=== PATIENT | female | born 1980 | race Caucasian/White ===

== ENCOUNTER → 2018-06-06 09:44 | Outpatient (CLI) | payer MEDICAID, SELFPAY ==
[2017-03-09 18:19] VITALS: BMI 39.8
--- NOTE | 2018-06-06 09:46 | RAD_ITS ---
HISTORY: CHRONIC PAIN COMPARISON: None FINDINGS: XR Shoulder Min 3 views No fracture or acute disease. No bony abnormality seen. The right glenohumeral relationship appears normal. No significant arthritis. No soft tissue calcifications. RAD/Shoulder min 2 Views IMPRESSION: Negative right shoulder. No suspicious findings. at 0002 Reported and signed by: Yoshi Glaser MD Electronically Signed: Yoshi Glaser, at 0:00 EST Tel , Service support ,
--- OUTSIDE RECORDS SUMMARY | 2018-07-22 23:38 | XMS RPT_ITS ---
:1980 Author Organization OHIP Care Team Providers Name Role Phone Yoshi Gutierrez Attending Unavailable Alberto Vail Referring Unavailable Yoshi Gutierrez Attending Unavailable Yoshi Gutierrez Referring Unavailable Alberto Vail Primary Care Unavailable PROBLEMS PROBLEMS DATE TYPE CONDITION / CODE ATTENDING STATUS SOURCE 06/06/2018 Unknown M25.511 - Pain in Brenda Yoshi Active [facility] right shoulder / Community M25.511(ICD-10) Hospital Repository 06/06/2018 Unknown M75.41 - Yoshi Gutierrez Impingement Community syndrome of right Hospital shoulder / Repository M75.41(ICD-10) PROCEDURES PROCEDURES No Procedure Records FoundRESULTS RESULTS ORTHOPEDIC VISIT Observed: 06/06/2018 Status: F Source: [place] REPORT 10:35 AM [facility] REPOSITORY [facility]opa[facility] Sports Medicine [address] [place] [address] [address] [place] [address] OFFICE VISIT Date of Service: 06/06/18 MR#: [id number] Acct: [id number] Name: PAM BENITEZ Rep #: [id number] : 1980 Provider: VINCE Gutierrez Age/Sex: 38/F [place] [facility] [place]: Signed Intake Vital Signs06/06/18 Height 5 ft 7 in 06/06/18 Weight: 230 lb 06/06/18 Body Mass Index (BMI) 36.0 Intake Visit Reasons: RIGHT SHOULDER Is patient in pain?: Yes Pain scale (1-10): 9 Allergies No Known Allergies Allergy (Verified 06/06/18 09:48) Medications Benztropine [Cogentin] 0.5 mg PO QHS PRN 09/24/14 [History Confirmed 03/09/17] Fluphenazine HCl [Prolixin] 2.5 mg IM X1 09/24/14 [History Confirmed 06/06/18] Trazodone HCl 300 mg PO QHS 03/29/15 [History Confirmed 03/09/17] naproxen 500 mg tablet 500 mg PO BID 06/06/18 [History Confirmed 06/06/18] PFSH Surgical History tubes tied (Acute) Family History Other Cancer Heart disease Social History Smoking Status: Current every day smoker HPI RIGHT SHOULDER: Details: PAM BENITEZ is a 38 year old F here today for right shoulder pain. Patient notes that she has had shoulder pain for about 3 years with is worsening over the past year. Patient denies any known injury. She states that she has lost 100 pounds recently and thought her pain was from being overweight. Patient complains of an achiness into her lateral shoulder. She has decreased shoulder range of motion due to pain. She notes that she has always had weakness into her right arm. Patient has tried icing, heating and naproxen which isnt helpful. Patient denies any xrays, MRI, injections or physical therapy. ROS Const Reports system reviewed and no additional complaints, except as docu Eyes Reports system reviewed and no additional complaints, except as docu ENT Reports system reviewed and no additional complaints, except as docu Card Reports system reviewed and no additional complaints, except as docu Resp Reports system reviewed and no additional complaints, except as docu GI Reports system reviewed and no additional complaints, except as docu Reports system reviewed and no additional complaints, except as docu Musc Reports joint pain, Reports limited joint movement, Reports muscle weakness Skin/Breast Reports system reviewed and no additional complaints, except as docu Neuro Yes system reviewed and no additional complaints, except as docu Psych Reports system reviewed and no additional complaints, except as docu Endo Reports system reviewed and no additional complaints, except as docu Ortho Exam Right Shoulder Testing: Positive Hawkin's, Neer's and PROM-Forward Elevation 0-180; negative Speed's, TTP Biceps, TTP AC Joint, AROM-Forward Elevation 0-180 (170), AROM-External Rotation at side 0-60 (30), translation or empty can Internal Rotation: Hip SHOULDER: Patient has no evident abnormalities on inspection of the shoulder. She has no localized or generalized swelling noted. There is no evident bruising or ecchymotic changes Patient does have some decreased range of motion in all directions. Passively I am able to get her to full range of motion with forward elevation and abduction. She still lacks a little external rotation passively as well as internal rotation. She does not have any evidence of labral involvement. Office Procedures Kenalog 40 mg/mL suspension for injection (triamcinolone acetonide) 80 mg Intra-Articular ONCE Injections Yes Subacromial Injection Right Office Meds Kenalog Performing Provider: VINCE Sarmiento Administered by: VINCE Sarmiento on 06/06/18 10:13 Dose Route Admin Location Lot Number Expiration DateNDC Inhalation Therapy Aide 80 mg Intra-Articularright shoulder [id number] 05/24/19 [id number] [employer] [place] Assessment AND Plan Problems 1. Rotator cuff impingement syndrome of right shoulder M75.41 Plan Obtained Xrays of patient's right shoulder. Personally reviewed Xrays. There is no obvious fracture, dislocation, or lucency noted. See chart for further details. Patient has evidence of right shoulder impingement showing some decrease in her range of motion and positive impingement signs. She does have normal strength against resistance indicating the rotator cuff is likely intact. Her symptoms started gradually without any acute or known injury. At this time we discussed treatment options which include doing nothing, continued conservative anti-inflammatories and icing, injection, physical therapy, and/or further imaging. At this time I do not feel further imaging is necessarily warranted and patient would like to proceed with an injection and physical therapy in the shoulder. Risks and benefits were explained to patient regarding the injection which she understands. All questions were answered and consent was signed. Right subacromial injection was given under normal sterile fashion without any complications. Patient tolerated great showing marked improvement in her pain with range of motion as well. She is to recheck in 6 weeks after physical therapy. Orders Orders: Medications Discontinued: Kenalog (triamcinolone acetonide) Disco80 mg (2 mL) Intra- Articular ONCE 2 mL 0RFM75.41 ntinued Reason: Office Medication has bee NS n Documented as given Plan Detail Follow Up 6 Weeks Coding Level of Care Code Off vis,new,level 3 Diagnoses Rotator cuff impingement syndrome of right shoulder M75.41 Additional Codes heavy threader.sub ([id number]) 06/06/18 1035 <Electronically signed by Yoshi CLARKE> Date Yoshi CLARKE Cosigner Signature: Date (if applicable) CC: SHOULDER MIN 2 VIEWS Observed: 06/06/2018 Status: F Source: [place] 9:46 AM [facility] REPOSITORY [facility] Imaging Services [address] [place] [address] Shoulder min 2 Views MR#: [id number] Acct: [id number] Name: PAM BENITEZ Rep #: [id number] : 1980 F 38 From: Yoshi Glaser MD PCP: Alberto Vail MD Status: REG CLI Study: Shoulder min 2 Views Date of Exam: 06/06/18 Exam# [id number] Ordering Dr: Yoshi Gutierrez HISTORY: CHRONIC PAIN COMPARISON: None FINDINGS: XR Shoulder Min 3 views No fracture or acute disease. No bony abnormality seen. The right glenohumeral relationship appears normal. No significant arthritis. No soft tissue calcifications. RAD/Shoulder min 2 Views IMPRESSION: Negative right shoulder. No suspicious findings. at 0002 Reported and signed by: Yoshi Glaser MD Electronically Signed: Yoshi Glaser, at 0:00 EST Tel , Service support , CC: VINCE Gutierrez; Alberto Vail MD Alumni Relations Coordinator: Signed PROGRESS Observed: 05/08/2018 Status: COMPLETED Source: [place] 3:33 PM [facility] REPOSITORY HNO ID: [id number] Author: Naman Rucker Service: (none) Author Type: Nurse Practitioner Type: Progress Notes Filed: 05/08/2018 4:09 PM Note Text: Subjective HPI HPI Pam Benitez is a 38 year old female who presents today for CC of sinus pressure, cough. This started 10 days. Has tried otc medications. Symptoms are worsened by nothing. Risk factors everyday smoker, seasonal allergies. Denies possibility of being . Right shoulder pain without injury for past few months. Has limited rom. Improves with ibuprofen, has not used consistently. Does not want xray or w/u today. .Patient presents with: Acute Visit: sinusitis with cough x 10 days PAST MEDICAL HISTORY Diagnosis Date - Depression 2004 [facility] - Personal history UTI As child PAST SURGICAL HISTORY Procedure Laterality Date - LIGATE FALLOPIAN TUBE Tubal ligation ALLERGIES Patient has no known allergies. -This section reviewed with patient, no changes MEDICATIONS benztropine (COGENTIN) 0.5 mg tablet Take 1 tablet by mouth once daily. fluPHENAZine 2.5 mg/mL injection Inject 1 mL intramuscularly every 2 weeks. fluticasone (FLONASE) 50 mcg/actuation nasal spray Use 2 Sprays in each nostril once daily. Rinse mouth after use. traZODone (DESYREL) 100 mg tablet Take 3 tablets by mouth daily at bedtime. -This section reviewed with patient, no changes FAMILY HISTORY Problem Relation Age of Onset - Cancer Maternal Grandfather leukemia - Diabetes Father - Emphysema Maternal Grandmother - Heart Father - Hypertension Father - Lipids Father Social History Substance Use Topics - Smoking status: Current Every Day Smoker Packs/day: 0.50 Types: Cigarettes Start date: 03/14/2013 - Smokeless tobacco: Never Used - Alcohol use No -This section reviewed with patient, no changes Review of Systems Constitutional: Negative for chills and fever. HENT: Positive for congestion and sore throat. Negative for ear pain and nosebleeds. Respiratory: Positive for cough. Negative for shortness of breath and wheezing. Cardiovascular: Positive for chest pain (with cough. not currently. ). Musculoskeletal: Negative for neck pain. Skin: Negative for itching and rash. Objective Blood pressure 98/64, pulse 94, temperature 36.6 ?C (97.9 ?F), temperature source Left Tympanic, resp. rate 16, weight 107.8 kg (237 lb 9.6 oz), SpO2 98 %. Physical Exam Constitutional: She is oriented to person, place, and time and well-developed, well-nourished, and in no distress. Non-toxic appearance. She does not have a sickly appearance. No distress. HENT: Head: Normocephalic and atraumatic. Right Ear: Hearing, tympanic membrane, external ear and ear canal normal. Left Ear: Hearing, tympanic membrane, external ear and ear canal normal. Nose: Right sinus exhibits maxillary sinus tenderness. Left sinus exhibits maxillary sinus tenderness. Mouth/Throat: Uvula is midline, oropharynx is clear and moist and mucous membranes are normal. Eyes: Pupils are equal, round, and reactive to light. Conjunctivae and lids are normal. Right eye exhibits no discharge. Left eye exhibits no discharge. No scleral icterus. Neck: Trachea normal and normal range of motion. Neck supple. Cardiovascular: Normal rate, regular rhythm and normal heart sounds. Pulses: Radial pulses are 2+ on the right side. Pulmonary/Chest: Effort normal and breath sounds normal. Musculoskeletal: Right shoulder: She exhibits decreased range of motion, tenderness and pain. She exhibits no bony tenderness, no swelling, no effusion, no crepitus, no deformity, no laceration, no spasm, normal pulse and normal strength. Arms: Lymphadenopathy: She has no cervical adenopathy. Neurological: She is alert and oriented to person, place, and time. Skin: No rash noted. She is not diaphoretic. ASSESSMENT/PLAN: 1. Sinobronchitis - ICD9: 473.9, 490, ICD10: J32.9, J40 - Will begin treatment with Doxycline - Supportive care with plenty of fluids, rest, and analgesia prn. - Follow up in 3-5 days if symptoms persist or worsen. -If you experience chest pain/shortness of breath go to ER - GUAIFENESIN ER 600 MG TABLET, EXTENDED RELEASE 12 HR - DOXYCYCLINE MONOHYDRATE 100 MG TABLET 2. Acute pain of right shoulder - ICD9: 719.41, ICD10: M25.511 -declined w/u today -given stretches/exercises -Rest, Ice -discussed use of ibuprofen -follow up with primary care if symptoms persist/worsen in 10-14 days Prescription instructions reviewed with patient as applicable. Patient advised if symptoms do not improve or if symptoms worsen sooner, to contact the office for further evaluation by their primary care physician. Potential red flag symptoms discussed with the patient. Reviewed appropriate action plan to take if red flag symptoms occur. Patient agreeable to treatment plan. Naman Rucker APRN.CNP CNOV Observed: 05/08/2018 Status: COMPLETED Source: [place] 3:30 PM [facility] REPOSITORY Office Visit (WSTR) PAM BENITEZ ([id number]) 1980 F Date Time Provider Department 05/08/18 3:30 PM NAMAN RUCKER (NESSA) [facility] During your visit today, we recorded the following information about you: Temperature Pulse Respiration Blood pressure 97.9 degrees 94/minute 16/minute 98/64 Weight 107.8 kg Naman Rucker APRN.CNP 05/08/2018 4:09 PM Signed Subjective HPI HPI Pam Benitez is a 38 year old female who presents today for CC of sinus pressure, cough. This started 10 days. Has tried otc medications. Symptoms are worsened by nothing. Risk factors everyday smoker, seasonal allergies. Denies possibility of being . Right shoulder pain without injury for past few months. Has limited rom. Improves with ibuprofen, has not used consistently. Does not want xray or w/u today. .Patient presents with: Acute Visit: sinusitis with cough x 10 days PAST MEDICAL HISTORY Diagnosis Date - Depression 2004 [facility] - Personal history UTI As child PAST SURGICAL HISTORY Procedure Laterality Date - LIGATE FALLOPIAN TUBE Tubal ligation ALLERGIES Patient has no known allergies. -This section reviewed with patient, no changes MEDICATIONS benztropine (COGENTIN) 0.5 mg tablet Take 1 tablet by mouth once daily. fluPHENAZine 2.5 mg/mL injection Inject 1 mL intramuscularly every 2 weeks. fluticasone (FLONASE) 50 mcg/actuation nasal spray Use 2 Sprays in each nostril once daily. Rinse mouth after use. traZODone (DESYREL) 100 mg tablet Take 3 tablets by mouth daily at bedtime. -This section reviewed with patient, no changes FAMILY HISTORY Problem Relation Age of Onset - Cancer Maternal Grandfather leukemia - Diabetes Father - Emphysema Maternal Grandmother - Heart Father - Hypertension Father - Lipids Father Social History Substance Use Topics - Smoking status: Current Every Day Smoker Packs/day: 0.50 Types: Cigarettes Start date: 03/14/2013 - Smokeless tobacco: Never Used - Alcohol use No -This section reviewed with patient, no changes Review of Systems Constitutional: Negative for chills and fever. HENT: Positive for congestion and sore throat. Negative for ear pain and nosebleeds. Respiratory: Positive for cough. Negative for shortness of breath and wheezing. Cardiovascular: Positive for chest pain (with cough. not currently. ). Musculoskeletal: Negative for neck pain. Skin: Negative for itching and rash. Objective Blood pressure 98/64, pulse 94, temperature 36.6 ?C (97.9 ?F), temperature source Left Tympanic, resp. rate 16, weight 107.8 kg (237 lb 9.6 oz), SpO2 98 %. Physical Exam Constitutional: She is oriented to person, place, and time and well-developed, well-nourished, and in no distress. Non-toxic appearance. She does not have a sickly appearance. No distress. HENT: Head: Normocephalic and atraumatic. Right Ear: Hearing, tympanic membrane, external ear and ear canal normal. Left Ear: Hearing, tympanic membrane, external ear and ear canal normal. Nose: Right sinus exhibits maxillary sinus tenderness. Left sinus exhibits maxillary sinus tenderness. Mouth/Throat: Uvula is midline, oropharynx is clear and moist and mucous membranes are normal. Eyes: Pupils are equal, round, and reactive to light. Conjunctivae and lids are normal. Right eye exhibits no discharge. Left eye exhibits no discharge. No scleral icterus. Neck: Trachea normal and normal range of motion. Neck supple. Cardiovascular: Normal rate, regular rhythm and normal heart sounds. Pulses: Radial pulses are 2+ on the right side. Pulmonary/Chest: Effort normal and breath sounds normal. Musculoskeletal: Right shoulder: She exhibits decreased range of motion, tenderness and pain. She exhibits no bony tenderness, no swelling, no effusion, no crepitus, no deformity, no laceration, no spasm, normal pulse and normal strength. Arms: Lymphadenopathy: She has no cervical adenopathy. Neurological: She is alert and oriented to person, place, and time. Skin: No rash noted. She is not diaphoretic. ASSESSMENT/PLAN: 1. Sinobronchitis - ICD9: 473.9, 490, ICD10: J32.9, J40 - Will begin treatment with Doxycline - Supportive care with plenty of fluids, rest, and analgesia prn. - Follow up in 3-5 days if symptoms persist or worsen. -If you experience chest pain/shortness of breath go to ER - GUAIFENESIN ER 600 MG TABLET, EXTENDED RELEASE 12 HR - DOXYCYCLINE MONOHYDRATE 100 MG TABLET 2. Acute pain of right shoulder - ICD9: 719.41, ICD10: M25.511 -declined w/u today -given stretches/exercises -Rest, Ice -discussed use of ibuprofen -follow up with primary care if symptoms persist/worsen in 10-14 days Prescription instructions reviewed with patient as applicable. Patient advised if symptoms do not improve or if symptoms worsen sooner, to contact the office for further evaluation by their primary care physician. Potential red flag symptoms discussed with the patient. Reviewed appropriate action plan to take if red flag symptoms occur. Patient agreeable to treatment plan. Naman Rucker APRN.NESSA Rucker APRN.CNP 05/08/2018 3:48 PM Signed ASSESSMENT/PLAN: 1. Sinobronchitis - ICD9: 473.9, 490, ICD10: J32.9, J40 - Will begin treatment with Doxycline - Supportive care with plenty of fluids, rest, and analgesia prn. - Follow up in 3-5 days if symptoms persist or worsen. -If you experience chest pain/shortness of breath go to ER - GUAIFENESIN ER 600 MG TABLET, EXTENDED RELEASE 12 HR - DOXYCYCLINE MONOHYDRATE 100 MG TABLET 2. Acute pain of right shoulder - ICD9: 719.41, ICD10: M25.511 -given stretches/exercises -Rest, Ice -discussed use of ibuprofen -follow up with primary care if symptoms persist/worsen in 10-14 days Referring Provider: SELF [200] Allergies As of Date: 05/08/2018 (No Known Allergies) Date Reviewed: 05/08/2018 Reviewed by: Naman (Nessa) - Fully Assessed Reason for Visit: Acute Visit [896] Cmt: sinusitis with cough x 10 days Primary Visit Diagnosis:Sinobronchitis [J32.9, J40] Other Visit Diagnosis:Acute pain of right shoulder [M25.511] Order(s):guaiFENesin (MUCINEX) 600 mg 12 hr tabletTake 1 tablet by mouth twice daily.Disp: 30 tabletRfl: 0 doxycycline monohydrate 100 mg tabletTake 1 tablet by mouth twice daily for 10 days.Disp: 20 tabletRfl: 0 Prescriptions as of 05/08/2018 Sig: BENZTROPINE 0.5 MG TABLET Take 1 tablet by mouth once d* FLUPHENAZINE 2.5 MG/ML INJECT* Inject 1 mL intramuscularly e* GUAIFENESIN ER 600 MG TABLET,* Take 1 tablet by mouth twice * DOXYCYCLINE MONOHYDRATE 100 M* Take 1 tablet by mouth twice * Problem List As Of Date 05/08/2018 Noted Resolved Depressive disorder, not elsewhere classified [*INVALID FOR* Knee pain [M25.569] INVALID FOR* Low back pain [M54.5] INVALID FOR* Smoking [F17.200] INVALID FOR* Other instructions from your clinician: ASSESSMENT/PLAN: 1. Sinobronchitis - ICD9: 473.9, 490, ICD10: J32.9, J40 - Will begin treatment with Doxycline - Supportive care with plenty of fluids, rest, and analgesia prn. - Follow up in 3-5 days if symptoms persist or worsen. -If you experience chest pain/shortness of breath go to ER - GUAIFENESIN ER 600 MG TABLET, EXTENDED RELEASE 12 HR - DOXYCYCLINE MONOHYDRATE 100 MG TABLET 2. Acute pain of right shoulder - ICD9: 719.41, ICD10: M25.511 -given stretches/exercises -Rest, Ice -discussed use of ibuprofen -follow up with primary care if symptoms persist/worsen in 10-14 days Prescriptions ordered this encounter Disp Refills Start End GUAIFENESIN ER 600 MG TABLET, EXTEND* 30 t* 0 05/08/2018 Route: ORAL Sig: Take 1 tablet by mouth twice daily. DOXYCYCLINE MONOHYDRATE 100 MG TABLET 20 t* 0 05/08/2018 05/18/2018 Cmt: May transfer to [facility] if less expensive. Route: ORAL Sig: Take 1 tablet by mouth twice daily for 10 days. Medications Discontinued During This Encounter fluticasone (FLONASE) 50 mcg/actuati* 1 Devin* 11 04/28/2017 05/08/2018 Route: EACH NOSTRIL Sig: Use 2 Sprays in each nostril once daily. Rinse mouth after use. Disc: Reason for discontinue is not on file. traZODone (DESYREL) 100 mg tablet 0 03/14/2015 05/08/2018 Class: Historical Med Route: ORAL Sig: Take 3 tablets by mouth daily at bedtime. Disc: Discontinued by another Health Care Provider Encounter Status:Closed by NAMAN RUCKER CNP on 05/08/18 PROGRESS Observed: 08/28/2017 Status: COMPLETED Source: [place] 6:19 PM [facility] REPOSITORY HNO ID: [id number] Author: Zaida Brantely) Kandi Service: (none) Author Type: Nurse Practitioner Type: Progress Notes Filed: 08/28/2017 6:22 PM Note Text: Subjective HPI Patient is a reliable 37 year old female here today with a 7 day history of burning with urination and vomiting. States she is urinating more frequently. She denies foul odor or alexey blood in her urine. Denies flank pain. Feels she has lower abdominal pressure. Denies fever. She has tried drinking more water. No OTC medication has been taking. Nothing makes it better. Feels like she is getting worse. States she has had tubal ligation but is concerned she might be . No other concerns at this time. Review of Systems Constitutional: Negative for chills, fever and malaise/fatigue. Gastrointestinal: Positive for abdominal pain (suprapubic pressure) and vomiting. Genitourinary: Positive for dysuria, frequency and urgency. Negative for flank pain and hematuria. Musculoskeletal: Negative for back pain. All other systems reviewed and are negative. PAST MEDICAL HISTORY Diagnosis Date - Depression 2004 [facility] - Personal history UTI As child PAST SURGICAL HISTORY Procedure Laterality Date - LIGATE FALLOPIAN TUBE Tubal ligation ALLERGIES Review of patient's allergies indicates no known allergies. MEDICATIONS benztropine (COGENTIN) 0.5 mg tablet Take 1 tablet by mouth once daily. fluPHENAZine 2.5 mg/mL injection Inject 1 mL intramuscularly every 2 weeks. traZODone (DESYREL) 100 mg tablet Take 3 tablets by mouth daily at bedtime. sulfamethoxazole-trimethoprim (BACTRIM DS) 800-160 mg per tablet Take 1 tablet by mouth twice daily for 10 days. fluconazole (DIFLUCAN) 150 mg tablet Take 1 tablet by mouth once daily for 1 day. fluticasone (FLONASE) 50 mcg/actuation nasal spray Use 2 Sprays in each nostril once daily. Rinse mouth after use. FAMILY HISTORY Problem Relation Age of Onset - Cancer Maternal Grandfather leukemia - Diabetes Father - Emphysema Maternal Grandmother - Heart Father - Hypertension Father - Lipids Father Social History Substance Use Topics - Smoking status: Current Every Day Smoker Packs/day: 0.50 Types: Cigarettes Start date: 03/14/2013 - Smokeless tobacco: Never Used - Alcohol use No BP 108/70 Pulse 76 Temp 36.3 ?C (97.4 ?F) (Tympanic) Resp 16 Wt 108.4 kg (239 lb) LMP 08/03/2017 BMI 37.43 kg/m2 Objective Physical Exam Constitutional: She is well-developed, well-nourished, and in no distress. HENT: Head: Normocephalic and atraumatic. Cardiovascular: Normal rate and regular rhythm. Pulmonary/Chest: Effort normal and breath sounds normal. Abdominal: Soft. Negative CVA tenderness bilaterally. + Suprapubic pressure with palpation Skin: Skin is warm. She is not diaphoretic. Nursing note and vitals reviewed. Component Results Component Value Range AND Units Status Performing Lab Glucose, Urine neg Neg mg/dL Final Unknown Bilirubin, Urine neg Neg Final Unknown Ketones, Urine neg Neg Final Unknown Specific [place], Ur 1.010 1.005 - 1.030 Final Unknown Hemoglobin/Blood,Ur non-hem moderate Neg Final Unknown pH, Urine 5.0 4.5 - 8.0 Final Unknown Protein, Urine 100 Neg mg/dL Final Unknown Urobilinogen, Urine 0.2 Normal (<1.1) EU Final Unknown Nitrites neg Neg Final Unknown Leukocytes 'moderate Neg Final Unknown Color/Appearance yellow / clear comment: Final Unknown Negative Urine ASSESSMENT/PLAN: 1. Dysuria - ICD9: 788.1, ICD10: R30.0 acute - UA positive for daniel esterase, hematuria and proteinuria - Send urine for culture - s/s of emergency given. Patient to see ER if noted - Begin treatment with Bactrim DS BID for 10 days - Patient education for prevention given - UA DIP B/O - URINE CULTURE - SULFAMETHOXAZOLE 800 MG-TRIMETHOPRIM 160 MG TABLET - FLUCONAZOLE 150 MG TABLET - HCG QUAL UR B/O Prescription instructions reviewed with patient as applicable. Patient advised if symptoms do not improve or if symptoms worsen sooner, to contact their primary care physician. Potential red flag symptoms discussed with the patient. Reviewed appropriate action plan to take if red flag symptoms occur. Patient agreeable to treatment plan. Zaida Chau CNP Observed: 08/28/2017 Status: F Source: [place] URINE CULTURE 4:18 PM [facility] REPOSITORY Sp. Request/Comment: - Specimen received in preservative Culture Result - 50,000 - <100,000 CFU/ml Escherichia coli --> ABNORMAL ALERT ORGANISM: Escherichia coli METHOD: Minimum inhibitory concentration(Vitek) Antibiotic Interp VIRGILIO Status Ampicillin SUSCEPTIBLE <=2 F Gentamicin SUSCEPTIBLE <=1 F Trimeth sulfameth SUSCEPTIBLE <=20 F Cefazolin SUSCEPTIBLE <=4 F CLSI breakpoints for therapy of uncomplicated UTI's due to E.coli, K.pneumoniae, and P.mirabilis were applied and may be used to predict the activity of oral agents(cefaclor, cefdinir, cefpodoxime, cefp rozil, cefuroxime, cephalexin, loracarbef). Ciprofloxacin SUSCEPTIBLE <=0.25 F Nitrofurantoin SUSCEPTIBLE <=16 F Cefepime SUSCEPTIBLE <=1 F Piperacillin/Tazobac SUSCEPTIBLE <=4 F Ampicillin Sulbact SUSCEPTIBLE <=2 F Ceftriaxone SUSCEPTIBLE <=1 F Meropenem SUSCEPTIBLE <=0.25 F Ertapenem SUSCEPTIBLE <=0.5 F Performed By: #### URCUL #### [facility] [address] [place], [place] [address] CNOV Observed: 08/28/2017 Status: COMPLETED Source: [place] 4:00 PM [facility] REPOSITORY Office Visit ([facility]) PAM BENITEZ ([id number]) 1980 F Date Time Provider Department 08/28/17 4:00 PM ZAIDA CHAU (NESSA) [facility] During your visit today, we recorded the following information about you: Temperature Pulse Respiration Blood pressure 97.4 degrees 76/minute 16/minute 108/70 Weight Last Period 108.4 kg 08/03/17 Zaida Chau CNP 08/28/2017 4:18 PM Signed Patient Education for Adult Female Urinary Tract Infections Possible complications: Pyelonephritis Renal abscess Expected course/prognosis: * Symptoms resolve within 2-3 days after starting treatment in almost all patients * One-fourth of women with simple UTI experience a second UTI within 6 months, and half at some time during lifetime. * Women with frequent or intercourse-related UTI should empty bladder immediately before and following intercourse. Instructions: * Maintain good hydration * Avoid sexual intercourse when symptoms present *Take antibiotic as directed * Return if symptoms not resolved or markedly improved within 48 hours * If taking prophylactic antibiotics, take at bedtime * Take showers instead of tub baths * Avoid feminine hygiene sprays and scented douches * Wipe urethra from front to back *Go to the Emergency room if fever, chills, or flank pain develop Please call your PCP if you are not feeling better in 3-5 days. You can try taking OTC Uristat (pyridium) if needed for burning. *Beware that it will turn your urine orange/red. *Avoid wearing contacts if taking pyridium it could discolor the lenses. Zaida Chau CNP 08/28/2017 6:22 PM Signed Subjective HPI Patient is a reliable 37 year old female here today with a 7 day history of burning with urination and vomiting. States she is urinating more frequently. She denies foul odor or alexey blood in her urine. Denies flank pain. Feels she has lower abdominal pressure. Denies fever. She has tried drinking more water. No OTC medication has been taking. Nothing makes it better. Feels like she is getting worse. States she has had tubal ligation but is concerned she might be . No other concerns at this time. Review of Systems Constitutional: Negative for chills, fever and malaise/fatigue. Gastrointestinal: Positive for abdominal pain (suprapubic pressure) and vomiting. Genitourinary: Positive for dysuria, frequency and urgency. Negative for flank pain and hematuria. Musculoskeletal: Negative for back pain. All other systems reviewed and are negative. PAST MEDICAL HISTORY Diagnosis Date - Depression 2004 [facility] - Personal history UTI As child PAST SURGICAL HISTORY Procedure Laterality Date - LIGATE FALLOPIAN TUBE Tubal ligation ALLERGIES Review of patient's allergies indicates no known allergies. MEDICATIONS benztropine (COGENTIN) 0.5 mg tablet Take 1 tablet by mouth once daily. fluPHENAZine 2.5 mg/mL injection Inject 1 mL intramuscularly every 2 weeks. traZODone (DESYREL) 100 mg tablet Take 3 tablets by mouth daily at bedtime. sulfamethoxazole-trimethoprim (BACTRIM DS) 800-160 mg per tablet Take 1 tablet by mouth twice daily for 10 days. fluconazole (DIFLUCAN) 150 mg tablet Take 1 tablet by mouth once daily for 1 day. fluticasone (FLONASE) 50 mcg/actuation nasal spray Use 2 Sprays in each nostril once daily. Rinse mouth after use. FAMILY HISTORY Problem Relation Age of Onset - Cancer Maternal Grandfather leukemia - Diabetes Father - Emphysema Maternal Grandmother - Heart Father - Hypertension Father - Lipids Father Social History Substance Use Topics - Smoking status: Current Every Day Smoker Packs/day: 0.50 Types: Cigarettes Start date: 03/14/2013 - Smokeless tobacco: Never Used - Alcohol use No BP 108/70 Pulse 76 Temp 36.3 ?C (97.4 ?F) (Tympanic) Resp 16 Wt 108.4 kg (239 lb) LMP 08/03/2017 BMI 37.43 kg/m2 Objective Physical Exam Constitutional: She is well-developed, well-nourished, and in no distress. HENT: Head: Normocephalic and atraumatic. Cardiovascular: Normal rate and regular rhythm. Pulmonary/Chest: Effort normal and breath sounds normal. Abdominal: Soft. Negative CVA tenderness bilaterally. + Suprapubic pressure with palpation Skin: Skin is warm. She is not diaphoretic. Nursing note and vitals reviewed. Component Results Component Value Range ANDamp; Units Status Performing Lab Glucose, Urine neg Neg mg/dL Final Unknown Bilirubin, Urine neg Neg Final Unknown Ketones, Urine neg Neg Final Unknown Specific [place], Ur 1.010 1.005 - 1.030 Final Unknown Hemoglobin/Blood,Ur non-hem moderate Neg Final Unknown pH, Urine 5.0 4.5 - 8.0 Final Unknown Protein, Urine 100 Neg mg/dL Final Unknown Urobilinogen, Urine 0.2 Normal (ANDlt;1.1) EU Final Unknown Nitrites neg Neg Final Unknown Leukocytes 'moderate Neg Final Unknown Color/Appearance yellow / clear comment: Final Unknown Negative Urine ASSESSMENT/PLAN: 1. Dysuria - ICD9: 788.1, ICD10: R30.0 acute - UA positive for daniel esterase, hematuria and proteinuria - Send urine for culture - s/s of emergency given. Patient to see ER if noted - Begin treatment with Bactrim DS BID for 10 days - Patient education for prevention given - UA DIP B/O - URINE CULTURE - SULFAMETHOXAZOLE 800 MG-TRIMETHOPRIM 160 MG TABLET - FLUCONAZOLE 150 MG TABLET - HCG QUAL UR B/O Prescription instructions reviewed with patient as applicable. Patient advised if symptoms do not improve or if symptoms worsen sooner, to contact their primary care physician. Potential red flag symptoms discussed with the patient. Reviewed appropriate action plan to take if red flag symptoms occur. Patient agreeable to treatment plan. Zaida Chau CNP Referring Provider: SELF [[id number]] Allergies As of Date: 08/28/2017 (No Known Allergies) Date Reviewed: 08/28/2017 Reviewed by: Zaida (Nessa) Kandi - Fully Assessed Reason for Visit: Vomiting [120] Cmt: pain with urination, lower abdominal pain x 1 week Reason For Visit History Recorded Primary Visit Diagnosis:Dysuria [R30.0] Order(s):UA DIP B/O [9980142] Order #: [id number] URINE CULTURE [SQURCUL] Order #: [id number] sulfamethoxazole-trimethoprim (BACTRIM DS) 800-160 mg per tabletTake 1 tablet by mouth twice daily for 10 days.Disp: 20 tabletRfl: 0 fluconazole (DIFLUCAN) 150 mg tabletTake 1 tablet by mouth once daily for 1 day.Disp: 1 tabletRfl: 0 HCG QUAL UR B/O [[id number]] Reflex Order#: [id number] (Ord#:[id number]) Prescriptions as of 08/28/2017 Sig: BENZTROPINE 0.5 MG TABLET Take 1 tablet by mouth once d* FLUPHENAZINE 2.5 MG/ML INJECT* Inject 1 mL intramuscularly e* TRAZODONE 100 MG TABLET Take 3 tablets by mouth daily* SULFAMETHOXAZOLE 800 MG-TRIME* Take 1 tablet by mouth twice * FLUCONAZOLE 150 MG TABLET Take 1 tablet by mouth once d* FLUTICASONE 50 MCG/ACTUATION * Use 2 Sprays in each nostril * Medication notes this encounter FLUTICASONE 50 MCG/ACTUATION NASAL SPRAY,SUSPENSION >> Chip Grover Ma 08/28/2017 4:01 PM >> CHERRY PADILLACHIP SatAug 28, 2017 4:01 PM done Problem List As Of Date 08/28/2017 Noted Resolved Depressive disorder, not elsewhere classified [*INVALID FOR* Knee pain [M25.569] INVALID FOR* Low back pain [M54.5] INVALID FOR* Smoking [F17.200] INVALID FOR* Other instructions from your clinician: Patient Education for Adult Female Urinary Tract Infections Possible complications: Pyelonephritis Renal abscess Expected course/prognosis: * Symptoms resolve within 2-3 days after starting treatment in almost all patients * One-fourth of women with simple UTI experience a second UTI within 6 months, and half at some time during lifetime. * Women with frequent or intercourse-related UTI should empty bladder immediately before and following intercourse. Instructions: * Maintain good hydration * Avoid sexual intercourse when symptoms present *Take antibiotic as directed * Return if symptoms not resolved or markedly improved within 48 hours * If taking prophylactic antibiotics, take at bedtime * Take showers instead of tub baths * Avoid feminine hygiene sprays and scented douches * Wipe urethra from front to back *Go to the Emergency room if fever, chills, or flank pain develop Please call your PCP if you are not feeling better in 3-5 days. You can try taking OTC Uristat (pyridium) if needed for burning. *Beware that it will turn your urine orange/red. *Avoid wearing contacts if taking pyridium it could discolor the lenses. Prescriptions ordered this encounter Disp Refills Start End SULFAMETHOXAZOLE 800 MG-TRIMETHOPRIM* 20 t* 0 08/28/2017 09/07/2017 Cmt: Ok to give generic equivalent Route: ORAL Sig: Take 1 tablet by mouth twice daily for 10 days. FLUCONAZOLE 150 MG TABLET 1 ta* 0 08/28/2017 08/29/2017 Route: ORAL Sig: Take 1 tablet by mouth once daily for 1 day. Encounter Status:Closed by ZAIDA CHAU CNP on 08/28/17 ALLERGIES ALLERGIES DATE TYPE / CODE NAME / CODE REACTION SEVERITY SOURCE 06/06/2018 Drug No Known Unknown [facility] Allergy/416 Allergies/F29002 Hospital 921103(SNOM 0388(RXNORM) Repository ED CT) Drug NO KNOWN [facility] Class/73709 ALLERGIES [address] [place] 1003(SNOMED Repository CT) ENCOUNTERS ENCOUNTERS ADMIT/DISCHARGE ACCOUNT ADMITTING ENCOUNTER LOCATION SOURCE NUMBER CLASS 06/06/2018 [id number] Ambulatory [facility] ing:HPRAD Repository 06/06/2018/06/06/20 [id number] Ambulatory BMSBuilding:[address] [facility] Repository 05/08/2018/05/09/20 [id number] Ambulatory [address] Repository 08/28/2017/08/30/19 [id number] Ambulatory [address] Repository PAYERS PAYERS ENCOUNTER GUARANTOR PAYER SUBSCRIBER SOURCE 06/06/2018 PAM Jin Primary PAM [id number] [facility] [place]: [id number] [id number] Repository 00875Gsp: (330) Date:2018-06-06P O [phone] () [address]ATTN: [place] [address]W[place]: 06/06/2018 Secondary NOT GIVENUNK [facility] Insurance:SELF PAY [facility] Number: Effective Repository Date:2018-06-06 06/06/2018 PAM Jin Primary PAM Brandon [id number] [facility] Number: [id number], [place] [id number] Repository [address]Dxd: (330) Date:2018-05-28 O [phone] () [address]ATTN: [place] [address]HQ: 06/06/2018 Secondary NOT GIVENUNK [facility] Insurance:SELF PAY [facility] Number: Effective Repository Date:2018-06-06
== END ==
PROVIDERS: Family Provider Family Medicine; PCP Family Medicine; Referring Provider Physician Assistant; Visit Provider Physician Assistant
DX: M25.511 Pain in right shoulder (principal)
CPT/HCPCS: 73030

== ENCOUNTER 2018-09-29 16:34 | Emergency (ER) | payer MEDICAID, SELFPAY ==
[2018-09-29 16:34] VITALS: BP 130/66; PULSE 119; RESP 16; TEMP 36.4; O2SAT 98; BMI 38.5
--- NOTE | 2018-09-29 16:50 | ED.VISSUMM ---
- ER Visit Summary Date of Service: 09/29/18 Chief Complaint: Pruritic erythematous rash History of Present Illness: The patient is a 38 F who presents with one-week history of pruritic erythematous rash. She states initially on her back. Now involving feet and both hands. Significant other does not have rash. They have no pets. No new antibiotics. No prior history of pruritic rash. No anaphylactic type symptoms. Physical Examination: Vital signs remarkable for blood pressure 130/66 and heart rate of 119. BMI 38.5. HEENT exam is unremarkable. Trachea midline. There is no stridor. There is no cervical lymphadenopathy. Heart is regular without murmur, gallop or rub. S1 and S2 are normal. Lungs are clear to auscultation with good movement of air bilaterally. Abdomen soft nontender. Examination of back and extremities reveal erythematous pustular rash with areas of excoriation and cellulitis. Test Results: None were obtained Emergency Department Course and Treatment: Since patient has no allergies will treat with cephalexin and Bactrim for strep and staph coverage. Treatment Plan: 7-day course of antibiotics and follow-up with primary care physician Dr. Vail Disposition: Discharge to home Impression: Pustular rash Areas of excoriation extremities and back with cellulitis This note was generated with [employer] dictation software. It may contain incorrect words, spelling, and punctuation that were not noted in review of the chart prior to signing ED Disposition - Plan for ED Patient: Disposition: Home or Assisted Living Diagnosis: Pustular rash, Cellulitis Instructions: Discharge Instructions for Cellulitis Prescriptions: Smz/Tmp Ds [Bactrim Ds] 1 tablet PO BID #14 tablet Cephalexin [Keflex] 500 mg PO 4X/DAY #28 capsule Referrals: Alberto Vail MD [Primary Care Provider] - 3-5 Days if not improving
[2018-09-29] MEDS: Cephalexin 250 MG Capsule 500 MG PO (17:06)
[2018-09-29] MEDS: Smz/Tmp Ds Tablet 1 TABLET PO (17:06)
== END 2018-09-29 18:21 | disposition home or self-care (01) ==
PROVIDERS: Emergency Provider Emergency Medicine; Family Provider Family Medicine; PCP Family Medicine
DX: L08.0 Pyoderma (principal); L03.312 Cellulitis of back [any part except buttock and flank]; L03.116 Cellulitis of left lower limb; L03.115 Cellulitis of right lower limb; L03.114 Cellulitis of left upper limb; L03.113 Cellulitis of right upper limb; E66.9 Obesity, unspecified; Z72.0 Tobacco use
CPT/HCPCS: 99283

== ENCOUNTER 2018-11-03 22:37 | Emergency (ER) | payer MEDICAID, SELFPAY ==
[2018-11-03 22:38] VITALS: BP 103/66; PULSE 94; RESP 16; TEMP 37.2; O2SAT 97; BMI 38.5
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
[2018-11-03 23:22] LABS: Absolute Lymphocyte Count 3.77 X10^3/ul (0.83-4.51); Absolute Neutrophil Count 9.1 X10^3/uL (2.0-7.7); Basophil# 0.04 X10^3/uL; Basophil% 0.3 % (0-1); Eosinophil# 0.58 X10^3/uL; Hematocrit 39.6 % (37-47); Hemoglobin 12.9 g/dl (12.0-15.0); Lymphocyte # 3.77 X10^3/ul (4.0); Lymphocyte % 25.9 % (19-41); Mean Corp Hgb Conc 32.6 g/gl (32-36); Mean Corpuscular Hgb 27.7 pg (27.0-32.0); Mean Corpuscular Volume 85.2 fL (81-99); Mean Platelet Vol. 9.1 fl (6.2-12.0); Monocyte# 0.95 X10^3/uL; Monocyte% 6.5 % (0-10); Neutrophil # 9.12 X10^3/uL (2.7-7.7); Neutrophil % 62.7 % (47-70); POSITIVE COUNT NO; POSITIVE DIFFERENTIAL NO; POSITIVE MORPHOLOGY NO; Platelet Count 384 K/mm3 (150-450); RBC Distribution Width CV 14.1 % (11.6-14.6); Red Blood Count 4.65 M/mm3 (4.2-5.4); White Blood Count 14.6 K/mm3 (4.4-11.0)
[2018-11-03 23:24] LABS: Internal QC Validated? YES +Cl - CLEAR BKGD; Pregnancy, Serum, hCG Quali. NEGATIVE Negative
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
--- NOTE | 2018-11-03 23:29 | ED.RN ---
per dr truong no sitter needed
[2018-11-03 23:30] LABS: Anion Gap 4 (5-15); BUN 13 mg/dL (7-18); BUN/Creat Ratio 18.1 RATIO (10-20); Calcium,Total 8.4 mg/dL (8.5-10.1); Chloride 107 mmol/L (98-107); Creatinine, Serum 0.72 mg/dL (0.55-1.02); EST Glomerular Filtration Rate 95 mL/min (>60); Est Glom Filt Rate - Afr Amer 115 mL/min (>60); Estimated Creatinine Clearance 104.77 ml/min; Glucose 89 mg/dL (74-106); Potassium 4.1 mmol/L (3.5-5.1); Sodium Level 137 mmol/L (136-145)
[2018-11-03 23:48] LABS: Alcohol, Blood (Medical)-Serum < 3.0 mg/dL
[2018-11-03 23:53] LABS: Amphetamine Urine VISTA POSITIVE (<1000 ng/mL); Barbiturate Urine VISTA NEGATIVE (< 200 ng/mL); Benzodiazepine Urine VISTA NEGATIVE (< 200 ng/mL); Cocaine Urine VISTA NEGATIVE (< 300 ng/mL); Ecstacy Urine VISTA NEGATIVE (< 500 ng/mL); Methadone Urine VISTA NEGATIVE (< 300 ng/mL); PCP Urine VISTA NEGATIVE (< 25 ng/mL); THC Urine VISTA NEGATIVE (< 50 ng/mL); Vista UDS pH Range 6
[2018-11-04 00:11] VITALS: BP 138/80; PULSE 88; RESP 16; O2SAT 98
--- NOTE | 2018-11-04 00:14 | ED.RN ---
PT STATES SHE WANTS TO FOLLOW UP WITH 180 TOMORROW, STATES SHE WANTS TO GET HELP FOR HER METH ADDICTION AND STATES THAT SHE IS NOT SUICIDAL. PT TALKED TO DR CATALAN ABOUT THIS
== END 2018-11-04 00:15 | disposition home or self-care (01) ==
PROVIDERS: Emergency Provider Emergency Medicine; Family Provider Family Medicine; PCP Family Medicine
DX: F15.10 Other stimulant abuse, uncomplicated (principal); F12.90 Cannabis use, unspecified, uncomplicated; F17.200 Nicotine dependence, unspecified, uncomplicated; F25.9 Schizoaffective disorder, unspecified
CPT/HCPCS: 80048; 80307; 80320; 84703; 85025; 99282; G0480

== ENCOUNTER 2020-08-12 16:10 | Emergency (ER) | payer MEDICAID, SELFPAY ==
[2020-08-12] VITALS (9 sets, daily range): BP systolic 100–155; BP diastolic 57–111; PULSE 93–127; RESP 12–20; TEMP 37.6; O2SAT 92–100; BMI 49.8
--- NOTE | 2020-08-12 16:22 | EKG12_ITS ---
Test Reason : SUICIDAL Blood Pressure : / mmHG Vent. Rate : 121 BPM Atrial Rate : 121 BPM P-R Int : 126 ms QRS Dur : 088 ms QT Int : 344 ms P-R-T Axes : 048 051 039 degrees QTc Int : 488 ms Sinus tachycardia Otherwise normal ECG Confirmed by NEDA MARTELL, ADRIAN ([id number]), continuity editor CORTEZ WILKS ([id number]) on 08/16/2020 11:23:03 AM Referred By: DIPAK Confirmed By:ADRIAN RED MD
[2020-08-12 16:37] LABS: Absolute Lymphocyte Count 3.93 X10^3/uL (0.83-4.51); Absolute Neutrophil Count 10.2 X10^3/uL (2.0-7.7); Basophil# 0.06 X10^3/uL; Basophil% 0.4 % (0-1); Eosinophil# 0.49 X10^3/uL; Eosinophils% 3.1 % (0-5); Hematocrit 38.4 % (37-47); Hemoglobin 12.4 g/dL (12.0-15.0); Lymphocyte # 3.93 X10^3/ul (4.0); Lymphocyte % 25.2 % (19-41); Mean Corp Hgb Conc 32.3 g/dL (32-36); Mean Corpuscular Hgb 26.2 pg (27.0-32.0); Mean Platelet Vol. 8.7 fl (6.2-12.0); Monocyte# 0.78 X10^3/uL; NRBC Flagged by Analyzer 0 % (0-5); Neutrophil % 65.5 % (47-70); Platelet Count 394 K/mm3 (150-450); RBC Distribution Width CV 14.6 % (11.6-14.6); RBC Distribution Width SD 42.8 fl (35.1-43.9); Red Blood Count 4.74 M/mm3 (4.2-5.4); White Blood Count 15.6 K/mm3 (4.4-11.0)
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
[2020-08-12] MEDS: 0.9% Normal Saline 1,000 ML 999 ML IV (16:54)
[2020-08-12 16:55] LABS: ALB/GLOB Ratio 0.7 RATIO (0.9-2.4); AST(SGOT) 12 U/L (15-37); Alanine Aminotransfer ALT/SGPT 21 U/L (13-56); Albumin, Serum 3.2 g/dL (3.2-5.0); Alkaline Phosphatase 105 U/L (45-117); Anion Gap 11 (5-15); BUN 6 mg/dL (7-18); BUN/Creat Ratio 6.8 RATIO (10-20); Calcium,Total 8.4 mg/dL (8.5-10.1); Chloride 107 mmol/L (98-107); Creatinine, Serum 0.88 mg/dL (0.55-1.02); EST Glomerular Filtration Rate 74 mL/min (>60); Est Glom Filt Rate - Afr Amer 90 mL/min (>60); Estimated Creatinine Clearance 74.94 ml/min; Globulin 4.4 g/dL (2.2-4.2); Glucose 130 mg/dL (74-106); Potassium 3.2 mmol/L (3.5-5.1); Protein, Total 7.6 g/dL (6.4-8.2); Sodium Level 138 mmol/L (136-145)
--- NOTE | 2020-08-12 17:00 | CM.ED ---
SOCIAL WORK Patient presents to [facility] ER due to suicide attempt by overdose. Patient's mother called in and reported to be patient's guardian. Nursing verified with patient that mother is guardian. Patient gave permission for this worker to call and speak with her mother. Call to patient's mother/guardian, Harriett Waggoner [phone]. Per patient's mother, patient with history of schizoaffective disorder and decided to go off her medications 6 weeks ago. Mother stating patient needs hospitalized and requests patient be placed at [facility]. Informed patient's mother Crisis to evaluate patient once medically cleared. Plan: Crisis to evaluate once medically cleared Rosalva Perdue MSW, FREELANCE OPERATOR
[2020-08-12 17:08] LABS: Magnesium 2.3 mg/dL (1.6-2.6)
[2020-08-12 17:09] LABS: Internal QC Validated? YES +Cl - CLEAR BKGD; Pregnancy, Serum, hCG Quali. NEGATIVE Negative
[2020-08-12 17:15] LABS: Acetaminophen (Tylenol) Level < 2.0 ug/mL (10.0-30.0); Salicylate 3.8 mg/dL (2.8-20.0)
[2020-08-12 17:21] LABS: Mucous, Urine 0 SEEN /hpf (<or=2+); Red Blood Cells-Urine 0 SEEN /hpf (0-5); White Blood Cells 0 SEEN /hpf (0-5)
[2020-08-12 17:29] LABS: Color, Urine Yellow (Yellow); Glucose, Dipstick Normal (Normal); Ketone-Dipstick Negative (Negative); Leukocyte Esterase-Dipstick Negative /ul (Negative); Nitrite-Dipstick Negative (Negative); Occult Blood-Urine Negative /ul (Negative); Protein-Dipstick Negative (Negative); Urine Bilirubin Dipstick Negative (Negative); Urine Clarity Clear (Clear); Urine Urobilinogen Normal (Normal)
[2020-08-12] MEDS: Potassium Chloride 10mEq/100mL 10 MEQ/100 ML IV.SOLN. 100 MEQ IV BOLUS (17:43)
[2020-08-12 17:46] LABS: Bacteria 1+ /hpf (None Seen); Squamous Epithelial Cells - UA 0-5 SEEN /hpf (5-10)
[2020-08-12 17:54] LABS: Amphetamine Urine VISTA POSITIVE (<1000 ng/mL); Barbiturate Urine VISTA NEGATIVE (< 200 ng/mL); Benzodiazepine Urine VISTA NEGATIVE (< 200 ng/mL); Cocaine Urine VISTA NEGATIVE (< 300 ng/mL); Ecstacy Urine VISTA NEGATIVE (< 500 ng/mL); Methadone Urine VISTA NEGATIVE (< 300 ng/mL); PCP Urine VISTA NEGATIVE (< 25 ng/mL); THC Urine VISTA NEGATIVE (< 50 ng/mL); Vista UDS pH Range 6
[2020-08-12 18:08] LABS: CPK Total, Creatine Kinase 50 U/L (26-192)
--- NOTE | 2020-08-12 19:10 | CM.ED ---
SOCIAL WORK Call to Crisis, spoke with Sherri. Updated on patient and this worker's conversation with patient's mother/guardian, Harriett Waggoner. Crisis to be called once patient is medically cleared. Staff updated. Rosalva Perdue MSW, DIRECTOR ENTERPR[employer] SALES
--- NOTE | 2020-08-12 19:20 | ED.RN ---
CALLED THE CRISIS CENTER TO LET THEM KNOW THAT THE PATIENT WAS MEDICALLY CLEARED BUT WE STILL HAD TO OBSERVE THE PATIENT FOR 6 HOURS. FAXED OVER ALL THE LAB RESULTS TO CRISIS CENTER.
[2020-08-12] MEDS: Acetaminophen 500 MG Tablet 1000 MG PO (23:36)
[2020-08-13 00:03] VITALS: BP 95/57; PULSE 94; RESP 12; O2SAT 98
[2020-08-13 00:20] VITALS: BP 95/57
[2020-08-13 01:05] VITALS: BP 98/70; PULSE 90; RESP 18; O2SAT 97
== END 2020-08-13 01:27 ==
PROVIDERS: Emergency Provider Emergency Medicine; PCP Family Medicine
DX: T43.592A Poisoning by other antipsychotics and neuroleptics, intentional self-harm, initial encounter (principal); E87.6 Hypokalemia; F25.9 Schizoaffective disorder, unspecified; F32.9 Major depressive disorder, single episode, unspecified; F17.200 Nicotine dependence, unspecified, uncomplicated; E66.9 Obesity, unspecified; Z79.899 Other long term (current) drug therapy
CPT/HCPCS: 80053; 80307; 80329; 81001; 82077; 82550; 83735; 84703; 85025; 87426; 93005; 96361; 96365; 96366; 99285; J7030; A4216; G0480

== ENCOUNTER → 2020-08-12 17:11 | Outpatient (REF) | payer SELFPAY ==
[2020-08-12 16:12] VITALS: BMI 49.8
[2020-08-12 17:54] LABS: HIV - WCH Non-Reactive (Nonreactive); Hepatitis B Surface Antibody Non-Reactive; Hepatitis B Surface Antigen Non-Reactive (Nonreactive); Hepatitis C Antibody Non-Reactive (Nonreactive)
[2020-08-15 20:33] LABS: Hepatitis B Core Ab Total Negative (Negative)
== END ==
LOC: EDREF 17:11
PROVIDERS: Emergency Medicine; PCP Family Medicine
DX: R69 Illness, unspecified (principal)
CPT/HCPCS: 86703; 86704; 86706; 86803; 87340

== ENCOUNTER 2021-06-01 11:56 | Emergency (ER) | payer MEDICAID, SELFPAY ==
[2021-06-01] VITALS (7 sets, daily range): BP systolic 105–117; BP diastolic 55–88; PULSE 62–118; RESP 15–18; TEMP 36.4; O2SAT 95–98; BMI 46.3
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
[2021-06-01 13:01] LABS: Absolute Lymphocyte Count 3.15 X10^3/uL (0.83-4.51); Basophil# 0.06 X10^3/uL; Basophil% 0.5 % (0-1); Eosinophil# 0.37 X10^3/uL; Hematocrit 38.9 % (37-47); Hemoglobin 12.2 g/dL (12.0-15.0); Lymphocyte # 3.15 X10^3/ul (0.83-4.51); Lymphocyte % 25.6 % (19-41); Mean Corp Hgb Conc 31.4 g/dL (32-36); Mean Corpuscular Hgb 25.1 pg (27.0-32.0); Mean Platelet Vol. 9.2 fl (6.2-12.0); Monocyte# 0.67 X10^3/uL; Monocyte% 5.4 % (0-10); NRBC Flagged by Analyzer 0 % (0-5); Neutrophil # 7.97 X10^3/uL (2.7-7.7); Neutrophil % 64.7 % (47-70); Platelet Count 406 K/mm3 (150-450); RBC Distribution Width SD 43.6 fl (35.1-43.9); Red Blood Count 4.86 M/mm3 (4.2-5.4); White Blood Count 12.3 K/mm3 (4.4-11.0)
--- NOTE | 2021-06-01 13:04 | EDS_ITS ---
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 She admits contacting family but states she has no recall of what she told them) Context: Sudden Onset Conflict: - (Recent family) Timing: - (Patient not forthcoming with information) Current Severity: Patient denying Maximum Severity: Severe Relieved by: Nothing Associated Symptoms Associated Symptoms - Psych: Positive for Depressed, Change in sleeping, Decreased Interest and Decreased Concentration Specific plan (suicidal thought): Put a bag of helium around her head Narrative Narrative: Patient is a 41-year-old woman states she does not recall contact her family telling them that she would kill herself. She states she has been depressed because of recent in family. Patient apparently took pills in front of the commander police reserves. She has had erratic behavior. Patient is not forthcoming with information. She is now denying everything. She believes she does not require hospitalization. The pills she took in front of the please officer she did spit out. She apparently lives alone. Prior similar symptoms: Yes Recent Illness/Hospitalization: No PFSH PFSH Home Medications benztropine 1 mg PO 4X/DAY 08/12/20 [History Last Taken Unknown] hydroxyzine HCl 25 mg PO TID 08/12/20 [History Last Taken Unknown] lamotrigine 50 mg PO BID 08/12/20 [History Last Taken Unknown] naltrexone 50 mg PO DAILY 08/12/20 [History Last Taken Unknown] Allergy/AdvReac Type Severity Reaction Status Date / Time No Known Allergies Allergy Verified 06/01/21 12:05 Family History Other Cancer Heart disease Surgical History tubes tied Social History (Updated 06/01/21 @ 13:[address] Tejas Coyne MD) household members: none Smoking Status: Current every day smoker tobacco type: cigarettes substance use type: does not use ROS ROS ED Constitutional Constitutional ED: Denies chills, fever(s), subjective, sweats or weight loss Eyes Eyes: Denies blurry vision, change in vision or diplopia ENT ENT ED: Denies ear pain, rhinorrhea or sore throat Cardiovascular Cardiovascular: Denies chest pain or palpitations Respiratory/Chest Respiratory/Chest: Denies cough, dyspnea or dyspnea on exertion Gastrointestinal Gastrointestinal: Denies abdominal pain, diarrhea, nausea or vomiting Genitourinary Genitourinary ED: Denies dysuria, hematuria or urinary frequency Musculoskeletal Musculoskeletal: Denies arthralgias, back pain, myalgias or neck pain Integumentary Denies rash Neurologic Neurologic: Denies headache(s) or weakness Psychiatric Psychiatric: Reports depression, suicidal ideation, suicidal thoughts and other Details: Per pink slip suicidal thoughts and ideation. Patient presently denying Hematologic/Lymphatic Hematologic/Lymphatic: Denies easy bleeding or easy bruising EXAM Physical Exam Const Vital Signs: 06/01/21 11:57 06/01/21 13:37 06/01/21 14:50 Temperature 97.5 F L Temperature Source Temporal Pulse Rate 118 H 99 84 Respiratory Rate 18 17 Blood Pressure 110/73 117/88 H 113/88 H Blood Pressure Mean 85 97 96 Pulse Ox 96 98 98 Oxygen Delivery Method Room Air Room Air Room Air 06/01/21 16:00 06/01/21 18:16 Temperature Temperature Source Pulse Rate Respiratory Rate 18 18 Blood Pressure Blood Pressure Mean Pulse Ox Oxygen Delivery Method Positive well nourished, well developed and obese General Appearance ED: well developed and NAD; Negative for pallor Nutritional Appearance: obese HEENT Reports moist mucous membranes normocephalic and atraumatic Eyes PERRL and EOMs intact bilaterally General Eye ED: Negative for pale conjunctiva or scleral icterus Neck no lymphadenopathy, supple and no JVD Resp normal respiratory effort and clear to auscultation bilaterally Cardio S1 normal heart sound, S2 normal heart sound and no murmurs Rate: tachycardic Rhythm: regular rhythm GI non-tender, non-distended and no masses Auscultation: normoactive bowel sounds Palpation: soft Extremity normal to inspection General Extremety ED: Negative for edema General Extremity: Negative for edema Neuro oriented x3 and CN's II-XII intact bilaterally Yessi Coma Scale: document GCS findings Spontaneous Obeys Commands Oriented 15 Sensorium / Orientation: alert Psych Appearance: other Patient was in hospital gown when I saw her. Attitude: calm Activity / Motor Behavior: psychomotor slowing Speech: minimal Mood & Affect: depressed and flat affect Thought Content: No suicidality, No homicidality, No phobia(s) and derealization Attention / Concentration: attention grossly intact Memory / Cognition: memory grossly intact Insight: poor Judgement: poor Skin General Skin Exam: Negative for jaundice or pallor Lesions: no lesions Rashes: no rashes MDM MDM MDM Narrative Medical decision making narrative: In light of documentation yomi rose high school social studies teacher worse consulted to see patient. She is in agreement patient needs inpatient therapy. Appropriate laboratory/blood work was ordered to facilitate transfer to psychiatric facility for appropriate management of her illness. I was informed by the store worker, and yelled at the accepting facility request an EKG. EKG was ordered. In my professional medical opinion patient does not have a metabolic, infectious process or any process that would prohibit her being treated at a psychiatric facility which she would benefit from immensely. Per the request of the accepting physician patient is medically clear . Furthermore CPK was ordered since talk screen was positive for amphetamines Lab Data Attestation: I reviewed the patient's lab results. Lab results narrative: White count is elevated. This is nonspecific. Basic metabolic panel is unremarkable. Ethanol is less than 3. Tox screen was positive for amphetamines. Serum test was negative. Labs: Laboratory Results - last 24 hr 06/01/21 06/01/21 06/01/21 12:20 12:20 12:20 WBC 12.3 H RBC 4.86 Hgb 12.2 Hct 38.9 MCV 80.0 L MCH 25.1 L MCHC 31.4 L RDW Std Deviation 43.6 RDW Coeff of Uli 15.0 H Plt Count 406 MPV 9.2 Immature Gran % (Auto) 0.800 Neut % (Auto) 64.7 Lymph % (Auto) 25.6 [place] % (Auto) 5.4 Eos % (Auto) 3.0 Baso % (Auto) 0.5 Absolute Neuts (auto) 8.0 H Absolute Lymphs (auto) 3.15 Nucleated RBC % 0 Sodium 137 Potassium 3.5 Chloride 106 Carbon Dioxide 25.0 Anion Gap 6 BUN 7 Creatinine 0.82 Estim Creat Clear Calc 86.03 Est GFR (MDRD) Af Amer 97 Est GFR (MDRD) Non-Af 80 BUN/Creatinine Ratio 8.5 L Glucose 107 H Calcium 8.8 Total Creatine Kinase Serum , Qual Urine Opiates Screen Urine Methadone Screen Ur Barbiturates Screen Ur Phencyclidine Scrn Ur Amphetamines Screen U Methamphetamin-MDMA U Benzodiazepines Scrn Urine Cocaine Screen U Cannabinoids Screen Ur Drug Screen Comment Ethyl Alcohol < 3.0 06/01/21 06/01/21 06/01/21 12:20 12:20 13:30 WBC RBC Hgb Hct MCV MCH MCHC RDW Std Deviation RDW Coeff of Lui Plt Count MPV Immature Gran % (Auto) Neut % (Auto) Lymph % (Auto) [place] % (Auto) Eos % (Auto) Baso % (Auto) Absolute Neuts (auto) Absolute Lymphs (auto) Nucleated RBC % Sodium Potassium Chloride Carbon Dioxide Anion Gap BUN Creatinine Estim Creat Clear Calc Est GFR (MDRD) Af Amer Est GFR (MDRD) Non-Af BUN/Creatinine Ratio Glucose Calcium Total Creatine Kinase 30 Serum , Qual NEGATIVE Urine Opiates Screen NEGATIVE Urine Methadone Screen NEGATIVE Ur Barbiturates Screen NEGATIVE Ur Phencyclidine Scrn NEGATIVE Ur Amphetamines Screen POSITIVE H U Methamphetamin-MDMA NEGATIVE U Benzodiazepines Scrn NEGATIVE Urine Cocaine Screen NEGATIVE U Cannabinoids Screen NEGATIVE Ur Drug Screen Comment Ethyl Alcohol EKG Initial EKG: Attestation: I personally reviewed and interpreted this EKG as follows: Interpretation: Sinus Tachycardia (Sinus tachycardia with a rate of 104. IA interval is 120. QRS duration 92 ms. QT duration 354 ms. [place] is normal other than sinus tach the EKG is normal. This in all likelihood is due to amphetamines.) Discharge Plan Triage Chief Complaint: Mental Health ED Provider: Tejas Coyne Dx/Rx/DC Orders Clinical Impression: Depression with suicidal ideation, Amphetamine abuse, Sinus tachycardia Prescriptions: No Action naltrexone 50 MG tablet 50 mg PO DAILY RF: 0 lamotrigine 25 MG tablet 50 mg PO BID RF: 0 benztropine 1 MG tablet 1 mg PO 4X/DAY RF: 0 hydroxyzine HCl 25 MG tablet 25 mg PO TID RF: 0 Primary Care Provider: Alberto Vail Referrals: Alberto Vail MD [Primary Care Provider] - Disposition Disposition: Acute Care Hospital
[2021-06-01 13:07] LABS: Internal QC Validated? YES +Cl - CLEAR BKGD; Pregnancy, Serum, hCG Quali. NEGATIVE Negative
[2021-06-01 13:09] LABS: Alcohol, Blood (Medical)-Serum < 3.0 mg/dL
[2021-06-01 13:10] LABS: Anion Gap 6 (5-15); BUN 7 mg/dL (7-18); BUN/Creat Ratio 8.5 RATIO (10-20); Calcium,Total 8.8 mg/dL (8.5-10.1); Chloride 106 mmol/L (98-107); Creatinine, Serum 0.82 mg/dL (0.55-1.02); EST Glomerular Filtration Rate 80 mL/min (>60); Est Glom Filt Rate - Afr Amer 97 mL/min (>60); Estimated Creatinine Clearance 86.03 ml/min; Glucose 107 mg/dL (74-106); Potassium 3.5 mmol/L (3.5-5.1); Sodium Level 137 mmol/L (136-145)
--- NOTE | 2021-06-01 13:36 | ED.RN ---
Patient resting comfortably in bed, no complaints. Pt ate lunch, up to restroom for urine sample.
[2021-06-01 13:54] LABS: Amphetamine Urine VISTA POSITIVE (<1000 ng/mL); Barbiturate Urine VISTA NEGATIVE (< 200 ng/mL); Benzodiazepine Urine VISTA NEGATIVE (< 200 ng/mL); Cocaine Urine VISTA NEGATIVE (< 300 ng/mL); Ecstacy Urine VISTA NEGATIVE (< 500 ng/mL); Methadone Urine VISTA NEGATIVE (< 300 ng/mL); PCP Urine VISTA NEGATIVE (< 25 ng/mL); THC Urine VISTA NEGATIVE (< 50 ng/mL); Vista UDS pH Range 6
--- NOTE | 2021-06-01 14:11 | EKG12_ITS ---
Test Reason : MENTAL HEALTH Blood Pressure : / mmHG Vent. Rate : 104 BPM Atrial Rate : 104 BPM P-R Int : 120 ms QRS Dur : 092 ms QT Int : 354 ms P-R-T Axes : 039 055 044 degrees QTc Int : 465 ms Sinus tachycardia Otherwise normal ECG Confirmed by NEDA MARTELL, ARDIAN ([id number]), supervising film or videotape editor CORTEZ WILKS ([id number]) on 06/05/2021 9:35:55 AM Referred By: BRAD Confirmed By:ADRIAN RED MD
--- NOTE | 2021-06-01 14:31 | CM.ED ---
Patient medically cleared. Referral faxed and called to [facility]. Plan: Pending review at [facility] at this time. Rosalva Perdue, HUMAN PERFORMANCE PROFESSOR, CUT AND PRINT MACHINE OPERATOR
--- NOTE | 2021-06-01 15:40 | CM.ED ---
Addendum entered by Vanessa Perdue 06/01/21 16:27: Referral has been faxed and called to [facility]. Original Note: Call to [facility] to check on status of referral. Intake reports under review at this time and will call this worker back. Rosalva Perdue, PUMP SERVICER HELPER, ORGANISATIONAL PSYCHOLOGIST
--- NOTE | 2021-06-01 16:26 | CM.ED ---
Received call from [facility] requesting CK level, statement from physician saying patient is medically cleared. Staff and Dr. Stanford Perdue, NEONATOLOGIST, FINISHING FRAME RUNNER
[2021-06-01 16:58] LABS: CPK Total, Creatine Kinase 30 U/L (26-192)
--- NOTE | 2021-06-01 17:07 | CM.ED ---
Requested clinical information faxed to [facility] at this time. Rosalva Perdue, METAL STAMPER, CLOTH BEAMER
--- NOTE | 2021-06-01 18:32 | CM.ED ---
Patient accepted to [facility], requesting [place] be faxed before providing accepting information. [place] faxed at this time. Patient updated. Rosalva Perdue, RN MANAGED CARE, ELECTRICAL ESTIMATOR
--- NOTE | 2021-06-01 18:53 | ED.RN ---
pt ate dinner, resting comfortably in bed and without complaints or needs.
--- NOTE | 2021-06-01 18:54 | CM.ED ---
Patient has been accepted by Dr. Greer to Room 104B Dual Unit at [facility]. Call to Physician's, ETA for transport 22:00. Staff and patient updated. Plan: KELLEY Rincon, K 12 PRINCIPAL
== END 2021-06-01 22:42 | disposition short-term general hospital (02) ==
PROVIDERS: Emergency Provider Emergency Medicine; PCP Family Medicine
DX: F32.A Depression, unspecified (principal); R45.851 Suicidal ideations; F15.10 Other stimulant abuse, uncomplicated; R00.0 Tachycardia, unspecified; F17.210 Nicotine dependence, cigarettes, uncomplicated; E66.9 Obesity, unspecified
CPT/HCPCS: 80048; 80307; 82077; 82550; 84703; 85025; 87426; 93005; 99285

== ENCOUNTER 2022-01-25 20:28 | Emergency (ER) | payer MEDICAID, SELFPAY ==
[2022-01-25 20:30] VITALS: BP 130/67; PULSE 118; RESP 18; TEMP 36.6; O2SAT 99; BMI 42.0
--- NOTE | 2022-01-25 20:55 | EDS_ITS ---
HPI HPI - Psych History of Present Illness Chief Complaint: Overdose Detail of Chief Complaint: Intentional overdose Informant: patient Narrative Narrative: Patient presents to the emergency department via EMS from home. Patient son called EMS because apparently she told him she had taken an overdose of her psychiatric medications and drink liquor and wanted to end her life. Patient denies this and she tells me that she is not suicidal and was very anxious because she lost the thousand dollars today and when she asked her mother for money for gas she was told that she was in embarrassment to the family. Patient does have history of depression and anxiety and history of PTSD. Patient has had prior history of overdose but states that it was 2 years ago. Currently she has no complaints otherwise. She denies any auditory or visual hallucinations. Prior similar symptoms: Yes PFSH PFSH Medical History (Updated 01/25/22 @ 22:[address] Ryan Vargas, DO) Depression Home Medications benztropine 1 mg tablet 1 mg PO 4X/DAY 08/12/20 [History Last Taken Unknown] hydroxyzine HCl 25 mg tablet 25 mg PO TID PRN Anxiety 08/12/20 [History Last Taken Unknown] fluphenazine HCl 5 mg tablet 5 mg PO DAILY 01/25/22 [History Last Taken Unknown] propranolol 20 mg tablet 20 mg PO BID PRN Anxiety 01/25/22 [History Last Taken Unknown] Allergy/AdvReac Type Severity Reaction Status Date / Time sulfamethoxazole Allergy Hives Verified 01/25/22 20:30 [From Bactrim] trimethoprim [From Bactrim] Allergy Hives Verified 01/25/22 20:30 Family History Other Cancer Heart disease Surgical History (Updated 01/17/22 @ 21:47 by Yesica Staples RN) tubes tied Social History (Updated 06/01/21 @ 13:[address] Tejas Coyne MD) household members: none Smoking Status: Current every day smoker tobacco type: cigarettes substance use type: does not use ROS ROS ED Review of Systems ROS Unobtainable: other Constitutional Constitutional ED: Reports lethargy; Denies chills, fever(s), sweats or weight loss Eyes Eyes: Denies blurry vision, change in vision or diplopia ENT ENT ED: Denies rhinorrhea or sore throat Cardiovascular Cardiovascular: Reports chest pain and racing heartbeat; Denies orthopnea Respiratory/Chest Respiratory/Chest: Reports dyspnea and dyspnea on exertion; Denies cough, orthopnea or sputum Gastrointestinal Gastrointestinal: Denies abdominal pain, diarrhea, nausea or vomiting Genitourinary Genitourinary ED: Denies dysuria, hematuria or urinary frequency Musculoskeletal Musculoskeletal: Denies arthralgias, back pain, myalgias or neck pain Integumentary Denies abscess, Abrasions or rash Neurologic Neurologic: Denies headache(s) or weakness Psychiatric Psychiatric: Denies anxiety, depression or suicidal thoughts Endocrine Endocrinology: Denies polydipsia, polyphagia or polyuria Hematologic/Lymphatic Hematologic/Lymphatic: Denies easy bleeding, easy bruising or lymphadenopathy Allergic/Immunologic Allergic/Immunologic ED: Denies mouth swelling, tongue swelling or urticaria EXAM Physical Exam Const Vital Signs: 01/25/22 20:30 01/25/22 22:00 Temperature 97.8 F Temperature Source Temporal Pulse Rate 118 H Respiratory Rate 18 14 Blood Pressure 130/67 H Blood Pressure Mean 88 Pulse Ox 99 Oxygen Delivery Method Room Air Positive well nourished and well developed General Appearance ED: well developed and NAD HEENT Reports TM's clear and moist mucous membranes normocephalic and atraumatic; Negative for trauma or tenderness Tympanic Membrane ED: Yes TM's clear Eyes PERRL and EOMs intact bilaterally General Eye ED: Negative for pale conjunctiva or scleral icterus Neck no lymphadenopathy, supple and no JVD General: Negative for tenderness Chest Wall inspection of chest normal and palpation of chest normal Chest: Negative for tenderness Resp normal respiratory effort and clear to auscultation bilaterally Effort and Inspection: Negative for respiratory distress or pain with movement Auscultation: Negative for rhonchi, wheezes or diminished lung sounds Cardio regular rhythm, S1 normal heart sound, S2 normal heart sound and no murmurs Rate: tachycardic Peripheral Pulses: pulses 2+ throughout GI normal to inspection, nondistended, normoactive bowel sounds, soft to palpation, non-tender, non-distended and no masses Back/Spine no CVA tenderness and no thoracic nor lumbar tenderness Extremity normal to inspection General Extremety ED: Negative for edema General Extremity: Negative for edema Neuro oriented x3, CN's II-XII intact bilaterally, no sensory deficits noted and gait normal Sensorium / Orientation: awake, alert, oriented to person, oriented to place and oriented to time Motor Exam: strength 5/5 throughout and strength abnormal Psych mental status grossly normal Skin no rashes or lesions noted and no wounds MDM MDM MDM Narrative Medical decision making narrative: I was able to evaluate patient's pink slip written by police officers and it appears that her son called EMS because she had taken 5 antidepressant medications and drank liquor tonight. Patient's son stated that his mom said that she wanted to end her life. Patient's lab work-up was essentially unremarkable. Alcohol was 14. Toxicology screen was positive for methamphetamines and MDMA. Salicylate level was negative and acetaminophen level was negative. I discussed case with poison control. Given patient stated ingestion of five 5 mg tablets of fluphenazine this did not meet the maximum daily dose of the medication. It was not recommended to give charcoal. At this point patient will be observed in the emergency department and will be evaluated by crisis. Care of patient will be turned over to evening physician awaiting evaluation by crisis and final disposition. Given her son statement and the ingestion and concerned that patient will likely require admission to psychiatric facility for definitive care. Lab Data Attestation: I reviewed the patient's lab results. Labs: Laboratory Results - last 24 hr 01/25/22 01/25/22 01/25/22 21:02 21:02 21:02 WBC 13.0 H RBC 4.82 Hgb 12.3 Hct 38.8 MCV 80.5 L MCH 25.5 L MCHC 31.7 L RDW Std Deviation 43.7 RDW Coeff of Uli 15.0 H Plt Count 343 MPV 8.8 Immature Gran % (Auto) 0.500 Neut % (Auto) 70.7 H Lymph % (Auto) 21.3 [place] % (Auto) 4.5 Eos % (Auto) 2.5 Baso % (Auto) 0.5 Absolute Neuts (auto) 9.2 H Absolute Lymphs (auto) 2.76 Nucleated RBC % 0 Sodium 140 Potassium 3.3 L Chloride 107 Carbon Dioxide 23.0 Anion Gap 10 BUN 8 Creatinine 0.85 Estim Creat Clear Calc 82.99 Est GFR (MDRD) Af Amer 94 Est GFR (MDRD) Non-Af 78 BUN/Creatinine Ratio 9.5 L Glucose 146 H Calcium 9.3 Serum , Qual Salicylates Urine Opiates Screen Urine Methadone Screen Acetaminophen Ur Barbiturates Screen Ur Phencyclidine Scrn Ur Amphetamines Screen MDMA (Ecstasy) Screen U Benzodiazepines Scrn Urine Cocaine Screen U Cannabinoids Screen Ur Drug Screen Comment Ethyl Alcohol 14.0 01/25/22 01/25/22 01/25/22 21:02 21:02 21:43 WBC RBC Hgb Hct MCV MCH MCHC RDW Std Deviation RDW Coeff of Uli Plt Count MPV Immature Gran % (Auto) Neut % (Auto) Lymph % (Auto) [place] % (Auto) Eos % (Auto) Baso % (Auto) Absolute Neuts (auto) Absolute Lymphs (auto) Nucleated RBC % Sodium Potassium Chloride Carbon Dioxide Anion Gap BUN Creatinine Estim Creat Clear Calc Est GFR (MDRD) Af Amer Est GFR (MDRD) Non-Af BUN/Creatinine Ratio Glucose Calcium Serum , Qual NEGATIVE Salicylates 3.1 Urine Opiates Screen NEGATIVE Urine Methadone Screen NEGATIVE Acetaminophen < 2.0 L Ur Barbiturates Screen NEGATIVE Ur Phencyclidine Scrn NEGATIVE Ur Amphetamines Screen POSITIVE H MDMA (Ecstasy) Screen POSITIVE H U Benzodiazepines Scrn NEGATIVE Urine Cocaine Screen NEGATIVE U Cannabinoids Screen NEGATIVE Ur Drug Screen Comment Ethyl Alcohol EKG Initial EKG: Comments: Sinus rhythm with a ventricular rate of 104 bpm with no acute ST segment changes noted. Discharge Plan Triage Chief Complaint: Overdose ED Provider: Ryan Vargas Dx/Rx/DC Orders Clinical Impression: Depression, Acute drug overdose, Suicidal ideation Prescriptions: No Action benztropine 1 MG tablet 1 mg PO 4X/DAY hydroxyzine HCl 25 MG tablet 25 mg PO TID PRN (Reason: Anxiety) Label Comments: TAKE 1 TABLET BY MOUTH THREE TIMES DAILY propranolol 20 mg Tablet 20 mg PO BID PRN (Reason: Anxiety) fluphenazine HCl 5 mg Tablet 5 mg PO DAILY Primary Care Provider: Alberto Vail Referrals: Alberto Vail MD [Primary Care Provider] -
--- NOTE | 2022-01-25 20:55 | EKG12_ITS ---
Test Reason : [facility] Blood Pressure : / mmHG Vent. Rate : 104 BPM Atrial Rate : 104 BPM P-R Int : 116 ms QRS Dur : 084 ms QT Int : 342 ms P-R-T Axes : 045 068 040 degrees QTc Int : 449 ms Sinus tachycardia Otherwise normal ECG Confirmed by NEDA MARTELL, ADRIAN ([id number]), brands editor CORTEZ WILKS ([id number]) on 01/26/2022 9:18:35 AM Referred By: ROGE Confirmed By:ADRIAN RED MD
[2022-01-25 21:10] LABS: Absolute Lymphocyte Count 2.76 X10^3/uL (0.83-4.51); Absolute Neutrophil Count 9.2 X10^3/uL (2.0-7.7); Basophil# 0.07 X10^3/uL; Basophil% 0.5 % (0-1); Eosinophil# 0.32 X10^3/uL; Eosinophils% 2.5 % (0-5); Hematocrit 38.8 % (37-47); Hemoglobin 12.3 g/dL (12.0-15.0); Lymphocyte # 2.76 X10^3/ul (0.83-4.51); Lymphocyte % 21.3 % (19-41); Mean Corp Hgb Conc 31.7 g/dL (32-36); Mean Corpuscular Hgb 25.5 pg (27.0-32.0); Mean Corpuscular Volume 80.5 fL (81-99); Mean Platelet Vol. 8.8 fl (6.2-12.0); Monocyte# 0.58 X10^3/uL; Monocyte% 4.5 % (0-10); NRBC Flagged by Analyzer 0 % (0-5); Neutrophil # 9.18 X10^3/uL (2.7-7.7); Neutrophil % 70.7 % (47-70); Platelet Count 343 K/mm3 (150-450); RBC Distribution Width SD 43.7 fl (35.1-43.9); Red Blood Count 4.82 M/mm3 (4.2-5.4)
[2022-01-25 21:29] LABS: Internal QC Validated? YES +Cl - CLEAR BKGD; Pregnancy, Serum, hCG Quali. NEGATIVE Negative
[2022-01-25 21:31] LABS: Anion Gap 10 (5-15); BUN 8 mg/dL (7-18); BUN/Creat Ratio 9.5 RATIO (10-20); Calcium,Total 9.3 mg/dL (8.5-10.1); Chloride 107 mmol/L (98-107); Creatinine, Serum 0.85 mg/dL (0.55-1.02); EST Glomerular Filtration Rate 78 mL/min (>60); Est Glom Filt Rate - Afr Amer 94 mL/min (>60); Estimated Creatinine Clearance 82.99 ml/min; Glucose 146 mg/dL (74-106); Potassium 3.3 mmol/L (3.5-5.1); Sodium Level 140 mmol/L (136-145)
[2022-01-25 21:37] LABS: Acetaminophen (Tylenol) Level < 2.0 ug/mL (10.0-30.0); Salicylate 3.1 mg/dL (2.8-20.0)
[2022-01-25 22:00] VITALS: RESP 14
[2022-01-25 22:07] LABS: Amphetamine Urine VISTA POSITIVE (<1000 ng/mL); Barbiturate Urine VISTA NEGATIVE (< 200 ng/mL); Benzodiazepine Urine VISTA NEGATIVE (< 200 ng/mL); Cocaine Urine VISTA NEGATIVE (< 300 ng/mL); Ecstacy Urine VISTA POSITIVE (< 500 ng/mL); Methadone Urine VISTA NEGATIVE (< 300 ng/mL); PCP Urine VISTA NEGATIVE (< 25 ng/mL); THC Urine VISTA NEGATIVE (< 50 ng/mL); Vista UDS pH Range 6
[2022-01-25 23:00] VITALS: RESP 14
--- NOTE | 2022-01-25 23:22 | ED.RN ---
POISON CONTROL CALLED TO CHECK PATIENT STATUS AT THIS TIME. UPDATE GIVEN AT THIS TIME TO THEM
[2022-01-26] VITALS: BP 121/71; PULSE 78; RESP 15
[2022-01-26 01:00] VITALS: RESP 17
[2022-01-26 02:00] VITALS: RESP 18
--- NOTE | 2022-01-26 02:20 | NURSING ---
REFERRED TO [facility]RANAD[facility] OF [id number].
[2022-01-26 04:00] VITALS: RESP 20
[2022-01-26 05:00] VITALS: RESP 18
[2022-01-26 06:46] VITALS: BP 110/75; PULSE 73; RESP 18; O2SAT 99
== END 2022-01-26 08:50 ==
PROVIDERS: Emergency Provider Emergency Medicine; PCP Family Medicine; Visit Provider Emergency Medicine
DX: R45.851 Suicidal ideations (principal); T43.202A Poisoning by unspecified antidepressants, intentional self-harm, initial encounter; T51.0X2A Toxic effect of ethanol, intentional self-harm, initial encounter; F32.A Depression, unspecified; F41.9 Anxiety disorder, unspecified; F17.210 Nicotine dependence, cigarettes, uncomplicated; F43.10 Post-traumatic stress disorder, unspecified; Z79.899 Other long term (current) drug therapy
CPT/HCPCS: 36415; 80048; 80307; 80329; 82077; 84703; 85025; 87811; 93005; 99285; G0480

== ENCOUNTER 2023-08-16 23:02 | Emergency (ER) | payer MEDICAID, SELFPAY ==
[2023-08-16 23:03] VITALS: BP 156/106; PULSE 125; RESP 18; TEMP 36.2; O2SAT 98; BMI 41.3
--- NOTE | 2023-08-16 23:24 | EKG12_ITS ---
Test Reason : [facility] Blood Pressure : / mmHG Vent. Rate : 117 BPM Atrial Rate : 117 BPM P-R Int : 126 ms QRS Dur : 086 ms QT Int : 340 ms P-R-T Axes : 060 058 043 degrees QTc Int : 474 ms Poor data quality, interpretation may be adversely affected Sinus tachycardia Otherwise normal ECG Confirmed by NEDA MARTELL, ADRIAN ([id number]), supervising editor trailer CORTEZ WILKS ([id number]) on 08/19/2023 9:46:27 AM Referred By: Confirmed By:ADRIAN RED MD
--- NOTE | 2023-08-16 23:28 | EDS_ITS ---
HPI History of Present Illness Chief Complaint: Suicidal Informant: patient and spouse/S.O. Narrative Narrative: Patient is a 43-year-old female with past medical history of depression and polysubstance abuse. She states that her son in January 2023. Since that time she has been struggling with grief and depression. She states that in the last day or so that her grief is overwhelmed her and she has had thoughts of harming herself. She states she has been admitted to multiple facilities in the past secondary to depression with suicidal ideation and has tried overdose in the past as well. The patient states that is her plan at this time but she also reports that she does not have any access to medication that she could use this for. However with concern she might need placed she comes in for evaluation [facility] Medical History Depression Migraines Smoker Home Medications benztropine 1 mg tablet 1 mg PO 4X/DAY 08/12/20 [History Last Taken Unknown] fluphenazine HCl 5 mg tablet 10 mg PO DAILY 01/25/22 [History Last Taken Unknown] buspirone 15 mg tablet 15 mg PO BID 08/16/23 [History Last Taken Unknown] Allergy/AdvReac Type Severity Reaction Status Date / Time sulfamethoxazole Allergy Hives Verified 08/16/23 23:06 [From Bactrim] trimethoprim [From Bactrim] Allergy Hives Verified 08/16/23 23:06 Family History Other Cancer Heart disease Surgical History tubes tied Social History (Updated 06/01/21 @ 13:[address] Tejas Coyne MD) household members: none Smoking Status: Current every day smoker tobacco type: cigarettes substance use type: does not use ROS ROS ED Constitutional Constitutional ED: Denies chills or fever(s) ENT ENT ED: Denies sore throat Cardiovascular Cardiovascular: Denies chest pain Respiratory/Chest Respiratory/Chest: Denies cough or dyspnea Gastrointestinal Gastrointestinal: Denies abdominal pain, diarrhea, nausea or vomiting Genitourinary Genitourinary ED: Denies dysuria Musculoskeletal Musculoskeletal: Denies myalgias Integumentary Denies rash Neurologic Neurologic: Denies headache(s) Psychiatric Psychiatric: Reports depression and suicidal thoughts Hematologic/Lymphatic Hematologic/Lymphatic: Denies easy bleeding or easy bruising EXAM Physical Exam Const Vital Signs: 08/16/23 23:03 Temperature 97.2 F L Temperature Source Temporal Pulse Rate 125 H Respiratory Rate 18 Blood Pressure 156/106 H Blood Pressure Mean 122 Pulse Ox 98 Oxygen Delivery Method Room Air Positive well nourished and well developed General Appearance ED: well developed; Negative for pallor HEENT HEENT Narrative: Normocephalic atraumatic Eyes PERRL and EOMs intact bilaterally General Eye ED: Negative for scleral icterus Neck supple Neck Narrative: No nuchal rigidity or meningeal signs noted Chest Wall palpation of chest normal Resp normal respiratory effort and clear to auscultation bilaterally Cardio regular rhythm Rate: tachycardic and other Other Details: Tachycardic rate with regular rhythm Radial and carotid pulses are equal and symmetric GI normal to inspection, nondistended, normoactive bowel sounds, non-tender, non-distended and no masses Auscultation: normoactive bowel sounds Palpation: soft Extremity normal to inspection Neuro oriented x3, CN's II-XII intact bilaterally and no sensory deficits noted Sensorium / Orientation: alert Motor Exam: strength 5/5 throughout Psych Psych Narrative: Patient has a depressed/flat affect with suicidal ideation Skin no rashes or lesions noted General Skin Exam: Negative for jaundice or pallor MDM MDM MDM Narrative Medical decision making narrative: Patient presented to the ER hypertensive and tachycardic but otherwise with stable vitals. She reported that she has been dealing with grief from the of her son and has felt increased depression recently. She reports that she has been thinking of harming herself by overdosing which she has done in the past but has not done so yet. She states that she does methamphetamine typically daily and use roughly at 4 AM this morning. As patient does have high risk factors for potential suicide attempt based on her multiple previous admissions and previous attempt in the past a basic crisis center workup was obtained. Blood work showed mild elevation of the white blood cell count which is most likely stress response from her methamphetamine use and otherwise no clinically significant findings other than the positive amphetamines on her talk screen. The patient was evaluated by crisis center who feel that this is more of a grief response and that the patient is acceptable for safety plan. Therefore this was performed and the patient was discharged with outpatient follow-up History & Record Review Discussion w/independent historian: Patient Lab Data Attestation: I reviewed the patient's lab results. Labs: Laboratory Results - last 24 hr 08/16/23 23:41 WBC 15.4 H RBC 4.82 Hgb 12.0 Hct 37.9 MCV 78.6 L MCH 24.9 L MCHC 31.7 L RDW Std Deviation 41.1 RDW Coeff of Uli 14.4 Plt Count 375 MPV 8.8 Immature Gran % (Auto) 0.600 Neut % (Auto) 76.1 H Lymph % (Auto) 16.8 L [place] % (Auto) 4.2 Eos % (Auto) 1.8 Baso % (Auto) 0.5 Absolute Neuts (auto) 11.7 H Absolute Lymphs (auto) 2.58 Nucleated RBC % 0 Sodium 136 Potassium 3.7 Chloride 107 Carbon Dioxide 24.0 Anion Gap 5 BUN 8 Creatinine 0.88 Estim Creat Clear Calc 108.15 Est GFR (MDRD) Af Amer 89 Est GFR (MDRD) Non-Af 73 BUN/Creatinine Ratio 9.0 L Glucose 182 H Calcium 8.9 Urine Test Negative Urine Opiates Screen NEGATIVE Urine Methadone Screen NEGATIVE Ur Barbiturates Screen NEGATIVE Ur Phencyclidine Scrn NEGATIVE Ur Amphetamines Screen POSITIVE H MDMA (Ecstasy) Screen NEGATIVE U Benzodiazepines Scrn NEGATIVE Urine Cocaine Screen NEGATIVE U Cannabinoids Screen NEGATIVE Ur Drug Screen Comment Ethyl Alcohol < 3.0 Discharge Plan Triage Chief Complaint: Suicidal ED Provider: James Sanchez Dx/Rx/DC Orders Clinical Impression: Depression with suicidal ideation, Polysubstance abuse Prescriptions: No Action benztropine 1 MG tablet 1 mg PO 4X/DAY fluphenazine HCl 5 mg Tablet 10 mg PO DAILY buspirone 15 mg tablet 15 mg PO BID Primary Care Provider: Alberto Vail Referrals: Alberto Vail MD [Primary Care Provider] - Activity Restrictions/Additional Instructions: Please follow-up with psychiatry/crisis center as directed and continue all of your home medications. Return to the ER should you have any further concerns or worsening of symptoms Disposition Disposition: Home, Self Care Discharge Date/Time: 08/17/23 02:20
--- OUTSIDE RECORDS SUMMARY | 2023-08-16 23:47 | XMS RPT_ITS | CCD ---
Author Name Unknown Address [address] [place] [address] Organization [facility] Care Team Providers Care Irrigation Specialist Name Role Phone Madina Vail Primary Care Provider MADINA VAIL Primary Care Unavailable YOANDY CARABALLO Consulting Unavailable YOANDY CARABALLO Attending Unavailable YOANDY CARABALLO Admitting Unavailable GIDEON LONG Consulting Unavailable Madina Vail MD Primary Care Provider Madina Vail MD Primary Care Provider [phone] Madina Vail MD Primary Care Provider MADINA VAIL Referring Unavailable MADINA VAIL Primary Care Unavailable Allergies Allergy Classification Reported Allergen(s) Allergy Type Date of Onset Reaction(s) Facility (7 sources) predniSONE; Translations: [PREDNISONE] Drug Allergy 0 Intolerance [facility] (7 sources) Sulfamethoxazole / Trimethoprim; Translations: [SULFAMETHOXAZOLE-TRI METHOPRIM] Drug Allergy 9 Hives [facility] Work Phone: Medications Current Medications Medication Drug Class(es) Dates Sig (Normalized) Sig (Original) carbamide peroxide 65 mg/ml otic solution (1 source) Start: 03-08-2022 End: 03-13-2022 carbamide peroxide (DEBROX) 6.5 % otic solution Indications: Impacted cerumen of left ear Use 5 Drops in both ears twice daily for 5 days. 15 mL 0 03/08/2022 03/13/2022 Active Completed/Discontinued Medications Medication Drug Class(es) Dates Sig (Normalized) Sig (Original) aluminum hydroxide 40 mg/ml / magnesium hydroxide 40 mg/ml / simethicone 4 mg/ml oral suspension (1 source) Start: 04-16-2020 End: 04-24-2020 take 30 mL by mouth every four hours as needed aluminum-magnesi um hydroxide-simeth icone (MAALOX PLUS) 200-200-20 mg/5 mL suspension 30 mL benztropine mesylate 1 mg oral tablet (8 sources) Anticholinergic, Antihistamine Start: 04-16-2020 End: 04-24-2020 take 0.5 mg by mouth twice daily 0.5 mg, Oral, 2 times daily, First dose on 04/16/20 at 1245 Problems Active Problems Problem Classification Problem Date Documented Date Episodic/Chronic Esophageal disorders (2 sources) Gastro-esophageal reflux disease with esophagitis; Translations: [Gastroesophageal reflux disease with esophagitis without hemorrhage] Chronic Immunizations and screening for infectious disease (1 source) Viral screening status; Translations: [Encounter for screening for other viral diseases] Episodic Mood disorders (6 sources) Depressive disorder; Translations: [Other specified depressive episodes] Onset: 08-14-2010 08-14-2010 Chronic Other ear and sense organ disorders (1 source) Impacted cerumen in left ear; Translations: [Impacted cerumen, left ear] Episodic Residual codes; unclassified (1 source) Current drinker; Translations: [Alcohol use] Episodic Schizophrenia and other psychotic disorders (10 sources) Schizoaffective disorder; Translations: [Schizoaffective disorder, bipolar type] Onset: 06-30-2019 04-17-2020 Chronic Substance-related disorders (9 sources) Methamphetamine abuse; Translations: [Amphetamine abuse] Onset: 12-19-2015 04-16-2020 Chronic Suicide and intentional self-inflicted injury (1 source) Suicidal thoughts; Translations: [Suicide ideation] Episodic Past or Other Problems Problem Classification Problem Date Documented Da te Episodic/Chronic Other non-traumatic joint disorders (7 sources) Pain in right knee; Translations: [Pain in joint, lower leg] Onset: 08-22-2010 Episodic Other screening for suspected conditions (not mental disorders or infectious disease) (7 sources) Patient encounter status; Translations: [Encounter for screening mammogram for malignant neoplasm of breast] Onset: 01-11-2023 Episodic Residual codes; unclassified (6 sources) Family history of cancer of colon; Translations: [Family history of malignant neoplasm of digestive organs] Onset: 06-30-2019 06-30-2019 Episodic Spondylosis; intervertebral disc disorders; other back problems (6 sources) Low back pain; Translations: [Low back pain] Onset: 08-24-2010 08-24-2010 Episodic Results Test Name Value Interpretation Reference Range Facil ity Vital Signs Date Time Vital Sign Value Performing Clinician Samantha hutchinson 03-08-2022 12:57-0400 Body weight 121.11 kg Madhurijean claude Faganhof CONSTRUCTION DRIVER.DRY PLASTERER Work Phone: [facility] 03-08-2022 12:57-0400 Diastolic blood pressure 72 mm[Hg] Madhuri Tannhof CONSTRUCTION DRIVER.DRY PLASTERER Work Phone: [facility] 03-08-2022 12:57-0400 Heart rate 110 /min Madhuri Faganhof CONSTRUCTION DRIVER.DRY PLASTERER Work Phone: [facility] 03-08-2022 12:57-0400 Respiratory rate 16 /min Madhurijean claude Faganhof CONSTRUCTION DRIVER.DRY PLASTERER Work Phone: [facility] 03-08-2022 12:57-0400 SaO2% (BldA) [Mass fraction] 97 % Madhuri Faganhof CONSTRUCTION DRIVER.DRY PLASTERER Work Phone: [facility] 03-08-2022 12:57-0400 Systolic blood pressure 102 mm[Hg] Madhuri Tannhof CONSTRUCTION DRIVER.DRY PLASTERER Work Phone: [facility] 11-15-2021 17:12-0400 Body temperature 97.59 [degF] Edison Avalebenito CONSTRUCTION DRIVER.DRY PLASTERER Work Phone: [facility] 11-15-2021 17:12-0400 Body weight 125.65 kg Edison Avalebury CONSTRUCTION DRIVER.DRY PLASTERER Work Phone: [facility] 11-15-2021 17:12-0400 Diastolic blood pressure 66 mm[Hg] Edison Pendlebury CONSTRUCTION DRIVER.DRY PLASTERER Work Phone: [facility] 11-15-2021 17:12-0400 Heart rate 108 /min Edison Escalantelebury CONSTRUCTION DRIVER.DRY PLASTERER Work Phone: [facility] 11-15-2021 17:12-0400 Respiratory rate 16 /min Edison Melendrez CONSTRUCTION DRIVER.DRY PLASTERER Work Phone: [facility] 11-15-2021 17:12-0400 SaO2% (BldA) [Mass fraction] 98 % Edison Melendrez CONSTRUCTION DRIVER.DRY PLASTERER Work Phone: [facility] 11-15-2021 17:12-0400 Systolic blood pressure 112 mm[Hg] Edison Melendrez CONSTRUCTION DRIVER.DRY PLASTERER Work Phone: [facility] 04-24-2020 07:51-0500 Body Temperature 97.9 [degF] Teresamahin [facility] 04-24-2020 07:51-0500 BP Diastolic 75 mm[Hg] Teresamahin [facility] 04-24-2020 07:51-0500 BP Systolic 108 mm[Hg] Teresamahin Ardon [facility] 04-24-2020 07:51-0500 Pulse (Heart Rate) 100 /min Teresamahin [facility] 04-24-2020 07:51-0500 Pulse Oximetry 96 % Teresamahin [facility] 04-24-2020 07:51-0500 Respiratory Rate 16 /min Teresamahin [facility] 04-16-2020 14:38-0400 BMI (Body Mass Index) 37.75 kg/m2 Teresamahin Ardon [facility] 04-16-2020 14:38-0400 Body weight 109.32 kg Teresamahin [facility] 04-16-2020 14:38-0400 Height 170.2 cm [place] [facility] Encounters Encounter Date Encounter Type Care Provider Facility Start: 06-04-2023 Jermain Jimenez CONSTRUCTION DRIVER.DRY PLASTERER Work Phone: [facility] Procedures Date Procedure Procedure Detail Performing Clinician Start: 01-11-2023 Screening mammography bi 2-view breast inc cad Bulk Order Provider Start: 04-20-2020 COVID-19, MOLECULAR Parvin Castle Work Phone: Start: 04-16-2020 Choriogonadotropin ( test) [Presence] in Urine Teresa Ardon Work Phone: Start: 04-16-2020 Drugs of abuse urine screening test Teresa Penn Natalya Work Phone: Start: 04-16-2020 Ethanol [Mass/volume] in Serum or Plasma Teresa Penn Natalya Work Phone: Start: 04-16-2020 LAVENDER TOP Teresa Arrieta [facility] Work Phone: Start: 04-16-2020 LIGHT BLUE TOP Teresa Arrieta [facility] Work Phone: Start: 04-16-2020 LIGHT GREEN TOP Teresa Arrieta [facility] Work Phone: Start: 04-16-2020 MINT GREEN TOP Teresa Arrieta [facility] Work Phone: Start: 04-16-2020 RAINBOW DRAW Teresa Arrieta [facility] Work Phone: Start: 04-16-2020 COVID-19, MOLECULAR Teresa Arrieta [facility] Work Phone: Start: 05-25-2010 Lipid 1996 panel - Serum or Plasma Madhuri Jimenez APRN.CNP Work Phone: Plan of Treatment Date Care Activity Detail Author Start: 01-12-2024 Mammography Mammogram Screening [facility] Start: 01-12-2024 Screening for malignant neoplasm of breast Mammogram Screening [facility] Start: 2023 Diabetes Screening Diabetes Screening [facility] Start: 2023 Lipid panel Lipid Screening [facility] Start: 2023 Screening for malignant neoplasm of colon [facility] Start: 02-22-2023 Covid-19 Vaccine ( season) Covid-19 Vaccine () [facility] Start: 02-22-2023 Influenza [facility] Start: 03-08-2022 End: 05-08-2022 Comprehensive metabolic 2000 panel - Serum or Plasma COMP METABOLIC PANEL Lab Routine Wellness examination Expected: 03/08/2022, Expires: 05/08/2022 [facility] Work Phone: Immunizations Immunization Date Immunization Notes Care Provider Fa cility 04-16-2020 influenza, injectabl e, quadrivalent, preservative free Teresa Ardon [facility] 04-16-2020 influenza virus vaccine, unspecified formulation Screen Wstr [facility] 03-18-2019 influenza, injectabl e, quadrivalent, preservative free Edison Melendrez APRN.CNP Work Phone: [facility] Payers Date Payer Category Payer Medicaid [id number] 2012 Medicaid [id number] 2010 Medicaid [id number] 2010 Medicaid [id number] 1978 Unknown [id number] Social History Date Type Detail Facility Start: 03-14-2013 End: 03-08-2022 Tobacco smoking status NHIS Current every day smoker [facility] Start: 04-16-2020 End: 03-08-2022 Tobacco use and exposure Never used [facility] Start: 04-16-2020 Alcohol intake Current drinke r of alcohol (finding) [facility] Start: 1980 Sex Assigned At Not on file [facility] Start: 11-05-2021 End: 03-08-2022 Exposure to SARS-CoV-2 (event) Not sure [facility] Start: 03-14-2013 History of tobacco use Cigarette Smo ker [facility] Start: 03-14-2015 End: 07-06-2022 Cigarettes smoked current (pack per day) - Reported 0.5 [facility] Start: 11-15-2021 End: 03-08-2022 Alcohol intake Current non-drinker of alcohol (finding) [facility] Start: 02-12-2022 History SDOH Alcohol Frequency 3 [facility] Start: 02-12-2022 History SDOH Alcohol Std Drinks 1 [facility] Start: 02-12-2022 History SDOH Social Connections Phone 5 [facility] Start: 02-12-2022 History SDOH Social Connections Get Together 4 [facility] Start: 02-12-2022 History SDOH Social Connections Membership 2 [facility] Start: 02-12-2022 History SDOH Physica l Activity DPW 0 [facility] Start: 02-12-2022 End: 07-06-2022 Social connection and isolation panel [facility] Do you belong to any clubs or organizations such as faith groups, unions, fraternal or athletic groups, or school groups? No [facility] Are you now , , , , never or living with a partner? [facility] How often to you hav e a drink containing alcohol? 2-4 times a month [facility] How many standard dr inks containing alcohol do you have on a typical day? 1 or 2 [facility] How often do you hav e 6 or more drinks on 1 occasion? Never [facility] How hard is it for y ou to pay for the very basics like food, housing, medical care, and heating Somewhat hard [facility] Do you feel stress - tense, restless, nervous, or anxious, or unable to sleep at night because your mind is troubled all the time - these days [OSQ] Very much [facility] (I/We) worried [facility] (my/our) food would run out before (I/we) got money to buy more. Often true [facility] In the past 12 month s, has lack of transportation kept you from medical appointments or from getting medications? No [facility] Clinical Notes 11-15-2021 to 06-04-2023 Telephone Encounter - Madina Vail MD - 06/04/2023 11:28 AM ESTTelephone Encounter - Jenny Pantoja Ma - 06/04/2023 10:16 AM Radha Akhtar RT(R) - 01/11/2023 2:10 PM EDT Note Date & Type Note Facility 06-04-2023 Miscellaneous Notes OK to refill as ordered Madina Vail MD Last office visit: 03/08/22 F/u scheduled: none Jenny Pantoja Ma documented in this encounter [facility] 01-11-2023 Note HNO ID: [id number] Author: Radha Mendoza RT(R) Service: ? Author Type: Technologist Type: Progress Notes Filed: 01/11/2023 2:17 PM Note Text: Radiology Service Progress Note PATIENT NAME: Pam Benitez DATE OF SERVICE: January 11, 2023 TIME: 2:15 PM PATIENT IDENTITY VERIFICATION COMPLETED USING TWO (2) IDENTIFIERS: Name and Date of confirmed by patient verbally. FALL SCREENING: Has the patient had 2 falls in the last year or 1 fall with injury or currently using an Ambulatory Assistive Device (Walker, Cane, Wheelchair, Crutches, etc.)? No PATIENT GENDER DATA: Female. status: : No status: NO. PATIENT RELEVANT IMPLANT DATA REVIEWED: Not Applicable RADIOLOGY DEPARTMENT: Mammography PERIPHERAL IV DATA: Not applicable SIGNED BY: NELSON Banda) January 11, 2023 2:15 PM [facility] 01-11-2023 History of Presen t illness Narrative Radiology Service Progress Note PATIENT NAME: Pam Benitez DATE OF SERVICE: January 11, 2023 TIME: 2:15 PM PATIENT IDENTITY VERIFICATION COMPLETED USING TWO (2) IDENTIFIERS: Name and Date of confirmed by patient verbally. FALL SCREENING: Has the patient had 2 falls in the last year or 1 fall with injury or currently using an Ambulatory Assistive Device (Walker, Cane, Wheelchair, Crutches, etc.)? No PATIENT GENDER DATA: Female. status: : No status: NO. PATIENT RELEVANT IMPLANT DATA REVIEWED: Not Applicable RADIOLOGY DEPARTMENT: Mammography PERIPHERAL IV DATA: Not applicable SIGNED BY: RT Veronika(Ryan) January 11, 2023 2:15 PM documented in this encounter [facility] 11-28-2022 Note Patient Outreach (IN [facility]) PAM BENITEZ ([id number]) 1980 F Date Time Provider Department 11/28/22 MADINA VAIL During your visit today, we recorded the following information about you: Allergies As of Date: 11/28/2022 Noted Allergy Reaction PREDNISONE 06/30/2019 5 - Intolerance Comments: Gets angry BACTRIM (SULFAMETHOXAZOLE-TRIMETH*2018 4 - Hives Date Reviewed: 03/08/2022 Reviewed by: Madhuri Jimenez APRN.DRY PLASTERER - Fully Assessed Visit Diagnosis:Encounter for screening mammogram for breast cancer [Z12.31] Order(s):[facility] SCREENING [[id number]] Order #: [id number] FUTURE Prescriptions as of 12/03/2022 - omeprazole (PRILOSEC) 20 mg capsule Take 1 capsule by mouth daily before breakfast. 1/2 hr before meal. - nicotine (NICODERM) 21 mg/24 hr Apply 1 Patch as directed every 24 hours. - benztropine (COGENTIN) 1 mg tablet Take 3 tablets by mouth once daily. - busPIRone (BUSPAR) 10 mg tablet Take 1 tablet by mouth twice daily as needed for Anxiety. - propranolol (INDERAL) 20 mg tablet Take 1 tablet by mouth twice daily. - fluPHENAZine 2.5 mg/mL injection 5 mg every 2 weeks. Problem List As Of Date 11/28/2022 Noted Resolved Depressive disorder, not elsewhere classified [*08/14/2010 Knee pain [M25.569] 08/22/2010 Low back pain [M54.50] 08/24/2010 Smoking [F17.200] 12/19/2015 FHx: colon cancer [Z80.0] 06/30/2019 Schizoaffective disorder (HCC) [F25.9] 06/30/2019 Encounter Status:Closed by RISA PADILLA on 12/03/22 [facility] 03-08-2022 Instructions Madhuri Jimenez APRN.DRY PLASTERER - 03/08/2022 1:23 PM EDT 1.) Get fasting labs, no food 8-10 hours prior, you can have black coffee and water. 2.) Schedule appointments for ODD PIECE CHECKER for Pap and Mammogram 3.) May use nicotine patch to help with smoking cessation. 4.) You are due for tdap vaccine 5.) Use Debrox ear drops in the left ear for 5 days, may return to the office if need to flush the ear. 6.) Follow up in 1 year or sooner as needed. Health Promotion: - Eat healthy -- go to [employer] to get started - Have a yearly physical - Mammogram yearly after age 40 - Get at least 30 minutes of physical activity daily - Get at least 7 to 8 hours of sleep each night - Reach and maintain a healthy weight - Get help to quit or don't start smoking - Limit alcohol use to one drink or less - Do not use illegal drugs or misuse prescription drugs - Wear a helmet when riding a bike and wear protective gear for sports - Wear a seatbelt in cars and not text and drive - Wear sunscreen documented in this encounter [facility] 03-08-2022 History of Presen t illness Narrative This is a 41 year old female who presents today with: Patient presents with: Physical HISTORY OF PRESENT ILLNESS: Pam Benitez is a 41 year old female. Patient presents with: Physical Here in the office for wellness exam. 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 Vision: Had exam, wears glasses. Dental: Had exam, no difficulties.Sleep: Getting 8 hours of sleep per night. Mood: history of + depression and schizo affective disorder, Taking Cogentin and BuSpar. Using propanolol as needed. Going to counseling center every 6 months to see psychiatrist. Syptoms well controlled. GERD: Taking omeprazole 20 mg daily. Symptoms well controlled with medication. Pap/Mammogram: Has never had a mammogram completed, order is in. Last Pap 2002, No history of abnormal. Menses regular but will have low grade fever, cramps, and heavy bleeding. Would like consult to ODD PIECE CHECKER. Vaccines: Due for Tdap. Denies wanting any vaccines Smoking 1 PPD, would like to quit. PAST MEDICAL HISTORY: PAST MEDICAL HISTORY Diagnosis Date Depression 2004 [facility] Personal history UTI As child PAST SURGICAL HISTORY Procedure Laterality Date LIG/TRNSXJ FLP TUBE ABDL/VAG APPR UNI/BI Tubal ligation ALLERGIES Prednisone and Bactrim [Sulfamethoxazole-Trimethoprim] MEDICATIONS Current Outpatient Medications Medication Sig omeprazole (PRILOSEC) 20 mg capsule Take 1 capsule by mouth daily before breakfast. 1/2 hr before meal. benztropine (COGENTIN) 1 mg tablet Take 3 tablets by mouth once daily. busPIRone (BUSPAR) 10 mg tablet Take 1 tablet by mouth twice daily as needed for Anxiety. propranolol (INDERAL) 20 mg tablet Take 1 tablet by mouth twice daily. fluPHENAZine 2.5 mg/mL injection 5 mg every 2 weeks. No current facility-administered medications for this visit. FAMILY HISTORY Problem Relation Age of Onset Diabetes Father Heart Father Hypertension Father Lipids Father Cancer Maternal Grandfather leukemia Emphysema Maternal Grandmother Social History Tobacco Use Smoking status: Every Day Packs/day: 0.50 Types: Cigarettes Start date: 03/14/2013 Smokeless tobacco: Never Vaping Use Vaping Use: Never used Substance Use Topics Alcohol use: No Drug use: No REVIEW OF SYSTEMS GENERAL: No weight loss, malaise or fevers/chills HEENT: Negative for frequent or significant headaches, No changes in hearing or vision. NECK: Negative for lumps, goiter, pain and significant neck swelling RESPIRATORY: Negative for cough, hemoptysis, wheezing, dyspnea or shortness of breath CARDIOVASCULAR: Negative for chest pain, leg swelling, orthopnea, or palpitations GI: No nausea, vomiting, or diarrhea/constipation. No hematochezia/melena. No heartburn or reflux symptoms. : No history of dysuria, frequency or incontinence MUSCULOSKELETAL: Negative for joint pain or swelling. SKIN: Negative for lesions, rash, and itching ENDOCRINE: Negative for cold or heat intolerance, polyuria, polydipsia and goiter NEURO: No history of headaches, syncope, paralysis, seizures or tremors MOOD: Negative for depression, anxiety, or suicidal ideation. EXAM: BP 102/72 Pulse 110 Resp 16 Wt 121.1 kg (267 lb) LMP 02/06/2022 (Approximate) SpO2 97% PHYSICAL EXAM: General Appearance: Well appearing, alert, in no acute distress, well-hydrated, well nourished. Skin: Skin color, texture, turgor normal, no suspicious rashes or lesions. Head: Normocephalic, no masses, lesions, tenderness or abnormalities. Eyes: Anicteric sclera. Pupils are equally round and reactive to light. Extraocular movements are intact. Ears: External ears normal, canals clear. TMs pearly godinez. Moderate amount of cerumen in the left ear. Neck: Supple, no adenopathy; thyroid symmetric, normal size, no bruits. Lungs: Lungs clear to auscultation. No wheezing, rhonchi, rales. Heart: RRR without murmur, gallop, or rubs. No ectopy. Abdomen: Normal abdominal exam, Abdomen soft, non-tender. Bowel sounds normal. No masses, organomegaly, Negative CVA tenderness. Extremities: No deformities, edema, skin discoloration, clubbing or cyanosis. Good capillary refill. Musculoskeletal: No joint swelling, deformity, or tenderness. Peripheral Pulses: Normal, Capillary refill <2secs, strong peripheral pulses, Pulses palpable. Neurologic: Gait normal. Sensation grossly intact. Mood: Pleasant, good eye contact, engaged. ASSESSMENT/PLAN: 1. Wellness examination - ICD9: V70.0, ICD10: Z00.00 (primary diagnosis) - Counseled on healthy diet and regular exercise - Calcium intake with supplements or by diet of 1000 mg/day for under 50, 6729-5992 mg/day for 50+ - Discussed need and benefit for weight loss. BMI 41.82 kg/(m^2) - Mammogram ordered - exam recommended once yearly - Smoking cessation encouraged; discussed risks to health and quitting strategies. Patient is ready to quit - Depression screening tool completed and reviewed with patient. Based on score and interview, patient is already diagnosed with depression and recommended continuing current plan of care. - Follow up for annual exam in one year - COMP METABOLIC PANEL 2. Gastroesophageal reflux disease with esophagitis without hemorrhage - ICD9: 530.81, 530.10, ICD10: K21.00 - Refill provided. - OMEPRAZOLE 20 MG CAPSULE,DELAYED RELEASE 3. Impacted cerumen of left ear - ICD9: 380.4, ICD10: H61.22 - May use Debrox eardrops in the left ear for 5 days, may return to the office for ear lavage. - CARBAMIDE PEROXIDE 6.5 % EAR DROPS 4. Encounter for smoking cessation counseling - ICD9: V65.42, 305.1, ICD10: Z71.6 - Cessation encouraged. - Physiologic and physical aspects of tobacco addiction as well as strategies for quitting were discussed. - Counseling was given focusing on the harmful effects of this addiction especially given the patient's medical condition(s) which will be worsened because of the chemicals in tobacco. - NICOTINE 21 MG/24 HR DAILY TRANSDERMAL PATCH 5. Women's annual routine gynecological examination - ICD9: V72.31, ICD10: Z01.419 - Due for Pap - CONSULT TO GYNECOLOGY 6. Special screening examination for viral disease - ICD9: V73.99, ICD10: Z11.59 - HEP C AB IA W/CONF SCRN 7. Screening for HIV (human immunodeficiency virus) - ICD9: V73.89, ICD10: Z11.4 - HIV 1 2 COMBO(AG/AB),WITH REFLEX TO DIFFERENTIATION 8. Screening for diabetes mellitus - ICD9: V77.1, ICD10: Z13.1 - HGB A1C 9. Screening cholesterol level - ICD9: V77.91, ICD10: Z13.220 - LIPID PANEL BASIC Follow-up in 1 year or sooner as needed. Discussed treatment plan and patient voices understanding. Patient's questions answered appropriately. Medications and potential side effects were discussed and patient voices understanding. Madhuri Jimenez APRN.CNP This note was partially generated using [employer] voice recognition system. Note was reviewed for accuracy. There may be minor misspellings or grammar miscues with [employer] voice recognition. documented in this encounter [facility] 03-02-2022 Miscellaneous Notes Has upcoming visit, can discuss at this time. Nicotine patches can be purchased over the counter. Armando Paris APRN.CNP Patient calls and states that she wants to quit smoking. Patient asking if provider will send in a prescription for Nicotine patches to [facility]? Please review and advise, Rabia Figueroa RN documented in this encounter [facility] 11-15-2021 History of Presen t illness Narrative Subjective HPI Nontoxic-appearing female presents urgent care chief complaint right knee pain. Duration of symptoms last night. Associated symptoms right knee pain decreased mobility. Patient states she was squatting over last night when she went to stand back up she felt a pop in her knee. Patient states previously she did injure ligaments and tendons in this knee. Patient presents today for evaluation. Denies any other injury. No numbness no tingling. Denies any decrease sensation. Past medical history prescription medication use allergies reviewed. Denies chance of is not breast-feeding. .Patient presents with: Knee Pain: right, twisted x last night PAST MEDICAL HISTORY Diagnosis Date Depression 2004 [facility] Personal history UTI As child PAST SURGICAL HISTORY Procedure Laterality Date LIG/TRNSXJ FLP TUBE ABDL/VAG APPR UNI/BI Tubal ligation ALLERGIES Prednisone and Bactrim [Sulfamethoxazole-Trimethoprim] MEDICATIONS omeprazole (PRILOSEC) 20 mg capsule Take 1 capsule by mouth daily before breakfast. 1/2 hr before meal. benztropine (COGENTIN) 1 mg tablet Take 3 tablets by mouth once daily. busPIRone (BUSPAR) 10 mg tablet Take 1 tablet by mouth twice daily as needed for Anxiety. propranolol (INDERAL) 20 mg tablet Take 1 tablet by mouth twice daily. fluPHENAZine 2.5 mg/mL injection 5 mg every 2 weeks. FAMILY HISTORY Problem Relation Age of Onset Diabetes Father Heart Father Hypertension Father Lipids Father Cancer Maternal Grandfather leukemia Emphysema Maternal Grandmother Social History Tobacco Use Smoking status: Current Every Day Smoker Packs/day: 0.50 Types: Cigarettes Start date: 03/14/2013 Smokeless tobacco: Never Used Vaping Use Vaping Use: Never used Substance Use Topics Alcohol use: No Drug use: No BP 112/66 Pulse 108 Temp 36.4 C (97.6 F) Resp 16 Wt 125.6 kg (277 lb) LMP 08/07/2021 (Exact Date) SpO2 98% Hr 89 Review of Systems Constitutional: Negative for chills, fever and malaise/fatigue. HENT: Negative for congestion, ear discharge, ear pain, sinus pain and sore throat. Eyes: Negative for blurred vision, pain, discharge and redness. Respiratory: Negative for cough, hemoptysis, sputum production, shortness of breath, wheezing and stridor. Cardiovascular: Negative for chest pain. Gastrointestinal: Negative for abdominal pain, diarrhea, nausea and vomiting. Musculoskeletal: Positive for falls and joint pain. Negative for back pain, myalgias and neck pain. Skin: Negative for itching and rash. Neurological: Negative for dizziness and headaches. Objective Physical Exam Constitutional: General: She is not in acute distress. Appearance: She is not diaphoretic. HENT: Head: Normocephalic. Eyes: Conjunctiva/sclera: Conjunctivae normal. Pupils: Pupils are equal, round, and reactive to light. Cardiovascular: Rate and Rhythm: Normal rate and regular rhythm. Heart sounds: Normal heart sounds. Pulmonary: Effort: Pulmonary effort is normal. No tachypnea, accessory muscle usage or respiratory distress. Breath sounds: Normal breath sounds. No stridor. Abdominal: Palpations: Abdomen is soft. Tenderness: There is no abdominal tenderness. Musculoskeletal: Cervical back: Normal range of motion and neck supple. No rigidity or tenderness. Right knee: Swelling present. No deformity, effusion, erythema or ecchymosis. Decreased range of motion. Tenderness present over the medial joint line. Right lower leg: Normal. Right ankle: Normal. Comments: No breaks in skin neurovascular intact. Lymphadenopathy: Cervical: No cervical adenopathy. Skin: General: Skin is warm and dry. Neurological: Mental Status: She is alert and oriented to person, place, and time. ASSESSMENT/PLAN: 1. Acute pain of right knee - ICD9: 719.46, ICD10: M25.561 - XR KNEE GENERAL 4V AP BOTH/PA BOTH/LAT/MERC RIGHT IMPRESSION: No acute abnormality No fractures noted. Knee immobilizer provided. Crutches provided. Suspicious of joint sprain. We will follow-up with orthopedics. Patient was educated on supportive therapies. Patient will follow up with primary care provider as needed. Patient was instructed to immediately proceed to emergency room for any new, worsening, or symptoms lasting longer than anticipated. The patient's clinical presentation is otherwise unremarkable at this time. Based on exam and clinical finding, the patient is stable for discharge. Plan of care was discussed with patient. Patient verbalizes understanding and agrees to plan of care. This note was generated using [employer] software. It may contain errors in wording, punctuation, or spelling. Edison Melendrez APRN.CNP documented in this encounter [facility] Diagnosis Encounter for screening mammogram for breast cancer [facility] Diagnosis Wellness examination- Primary Gastroesophageal reflux disease with esophagitis without hemorrhage Impacted cerumen of left ear Impacted cerumen Encounter for smoking cessation counseling Counseling on substance use and abuse Women's annual routine gynecological examination Special screening examination for viral disease Special screening examination for unspecified viral disease Screening for HIV (human immunodeficiency virus) Special screening examination for other specified viral diseases Screening for diabetes mellitus Screening cholesterol level Screening for lipoid disorders [facility] Diagnosis Encounter for screening mammogram for breast cancer [facility]* Diagnosis Gastroesophageal reflux disease with esophagitis without hemorrhage [facility] Diagnostic Procedure Only (Urgent) - Closed Specialty Diagnoses / Procedures Referred By Eitan hooper Referred To Contact XR IMAGING Diagnoses Acute pain of right knee Procedures XR KNEE GENERAL 4V AP BOTH/PA BOTH/LAT/MERC RIGHT RADIOLOGIC EXAM KNEE COMPLETE 4/MORE VIEWS Edison Melendrez APRN.CNP [address] [place] [address] Xr Imaging Referral ID Status Reason Start Date Expiration Date V isits Requested Visits Authorized [id number] Closed Auto-Generate d Referral 11/15/2021 12/15/2022 1 1 [facility] for referral (narrative)* Diagnostic Procedure Only (Routine) - Pending Review Specialty Diagnoses / Procedures Referred By Eitan hooper Referred To Contact BR IMAGING Diagnoses Encounter for screening mammogram for breast cancer Procedures JALEN SCREENING SCREENING MAMMOGRAPHY BI 2-VIEW BREAST INC Madina Lorenz MD [address] [place] [address] [facility] [address] [place] [address] Referral ID Status Reason Start Date Expiration Date Visits Requested Visits Authorized [id number] Pending Review Auto-Generat ed Referral 12/20/2021 01/19/2023 1 1 [facility] for referral (narrative)* Diagnostic Procedure Only (Routine) - Closed Specialty Diagnoses / Procedures Referred By Eitan hooper Referred To Contact BR IMAGING Diagnoses Encounter for screening mammogram for breast cancer Procedures JALEN SCREENING SCREENING MAMMOGRAPHY BI 2-VIEW BREAST INC Madina Lorenz MD [address] [place] [address] [facility] [address] [place] [address] Referral ID Status Reason Start Date Expiration Date V isits Requested Visits Authorized [id number] Closed Auto-Generate d Referral 11/28/2022 12/28/2023 1 1 [facility] for visit Narrative* Diagnostic Procedure Only (Routine) - Closed Specialty Diagnoses / Procedures Referred By Eitan hooper Referred To Contact BR IMAGING Diagnoses Encounter for screening mammogram for breast cancer Procedures JALEN SCREENING SCREENING MAMMOGRAPHY BI 2-[place] [address] [place] [address] [facility] [address] [place] [address] Referral ID Status Reason Start Date Expiration Date V isits Requested Visits Authorized [id number] Closed Auto-Generate d Referral 11/28/2022 12/28/2023 1 1 [facility] * Yoandy Caraballo MD - 04/24/2020 1:30 PM EST Inpatient Psychiatry Discharge Summary Patient Name: Pam Benitez MR #: [id number] : 1980 Admit Date: 399447 Discharge Date: 04/24/2020 Clinical Summary Reason for Hospitalization: Pam Benitez is a 39 y.o. , unemployed, female, resident of [place], [place] with a history of schizoaffective disorder, was brought to the emergency department by [facility] after patient was discharged for FRANCO-operating vehicle impaired . As reported patient had verbalized suicidal thoughts, was hitting self in head with phone. Patient claimed that she wanted to , had nothing to live for and had plan of taking overdose of pills. Patient claimed that today she was experiencing hearing voices whispering in her ears, doing surveillance on her. Patient was increasingly irritable, has intense anger and was crying uncontrollably. Patient reported that has been under psychiatric treatment since 2000-was diagnosed with depression, had been experiencing delusional thoughts, auditory hallucinations and had several psychiatric hospitalizations at [facility] in [place], was also hospitalized in [place] in 2013, treated in the hospital in [place], [place]. She has been attending counseling center of [facility] in [place], receiving long-acting injection. Patient had verbalized grandiose delusions of being held in his hospital age in [place] in past and was forced to use crack, methamphetamine, cocaine for 2 months. 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 Considering her deteriorating emotional state, suicidal plan intent and thoughts and refusal to contract for the safety, is admitted for further evaluation and treatment. Discharge Diagnoses and Associated Hospital Course: Schizoaffective disorder (HCC) During early course of hospitalization, patient was angry, irritable, seclusive, isolated, withdrawn on unit. She was individually and was encourage to participate in group therapy, activities therapy. She was treated with long- acting injection Prolixin decanoate biweekly at counseling Center at [facility] and at this time mood stabilizer Lamictal was added, to which she responded slowlyand gradually. No agitated, threatening, destructive behavior noted. Affect is appropriate to thought content. Denied of suicidal or homicidal plan, intent or thoughts. Consults placed Procedures Emergency Department Consult to PSYCH - Intake Counselor Hospitalize Patient To : Inpatient consult to Hospitalist Allergies Patient has no known allergies. Procedures performed No orders of the defined types were placed in this encounter. Other tests No orders of the defined types were placed in this encounter. Studies pending at discharge None Laboratory Results: No results found for: CHOL, HDL, LDLCALC, TRIG No results found for: HGBA1C No results found for: TSH Review of Systems: Constitutional: Denies fever, chills, diaphoresis, malaise Eyes: Denies blurred vision, double vision ENT: Denies nasal congestion, sore throat Neurological: Denies headache, photophobia, weakness, numbness CVS: Denies chest pain or palpitations Respiratory: Denies dyspnea or cough Musculoskeletal: Denies joint pain or muscle aches GI: Denies nausea, vomiting, constipation, or diarrhea : Denies urinary urgency, frequency, or burning Integumentary: Denies itching or rash Endocrine: Denies heat/cold intolerance or weight loss/weight gain Mental Status Evaluation: General Appearance & Behavior: older than stated age and pleasant Grooming & Hygiene: street clothes Psychomotor Activity: no psychomotor abnormalities or muscle atrophy noted Gait & Station stable gait Speech: soft spoken Flow of Thought: organized Thought Associations: Intact Content of Thought: No evidence of SI/HI Mood: much better Affect: mood congruent Insight: fair Judgment: fair Orientation: alert and oriented to person, place, time, and circumstances Memory: intact recent and remote Attention: intact Concentration: intact Language: intact Fund of Knowledge: estimated average intelligence Discharge Information Discharge Medications: Medication List START taking these medications lamoTRIgine 25 MG tablet Commonly known as: LAMICTAL Take 2 (two) tablets (50 mg total) by mouth 2 (two) times a day . CONTINUE taking these medications benztropine 0.5 MG tablet Commonly known as: COGENTIN fluPHENAZine 1 MG tablet Commonly known as: PROLIXIN propranoloL 10 MG tablet Commonly known as: INDERAL Where to Get Your Medications These medications were sent to [id number] - [place], [place] - [address] [place] [address] lamoTRIgine 25 MG tablet This patient is being discharged on one antipsychotic. Diagnostic work up including: BMI, blood pressure, hemoglobin A1c or blood glucose, and lipid panel have been completed in the past year performed within [facility] and available in EPIC. Glucose <126mg/dL, no indication of impaired glucose tolerance or insulin resistance in fasting or nonfasting state. Tobacco cessation medication has not been ordered as patient refused treatment for tobacco use. Disposition: Home Follow Up: [facility] [address] [place] [address] Follow up appt 05/03/2020 at 2:30 pm with Ирина SZYMANSKI Discharge Diet: Additional Information: Patient instructions, including activity, were given to the patient/family at discharge. Please seethe After Visit Summary in the medical record for details. Time spent on discharge: > 30 minutes Completed by: Yoanyd Caraballo on 04/24/20, 1:55 PM documented in this encounter History of Present Illness * Stephanie Myers - 04/24/2020 11:55 AM EST Spiritual Care Progress Note Completed by: Stephanie Myers Person(s) Present During this Visit: Patient Time Spent in Direct Patient Care: 60 Narrative: Patient attended Spirituality group. Theme for group was acceptance. Ramp Lead role introduced and how to contact if follow up is requested. Patients Response to Pastoral Care: Appeared to be well-engaged, Expressed Gratitude for Visit Planning for Future Visits: PRN 04/24/20 1000 Visit Background Visit With Patient Visit By Staff Ramp Lead Visit Progression Follow-Up Visit Requested By Ramp Lead Initiated Visit Source Ramp Lead Initiated Visit Type Behavioral Health;Inpatient Visit Circumstances and Events Group Visit Length (minutes) 60 Patient's Response to Pastoral Care Appeared to be well-engaged;Expressed Gratitude for Visit Visit Planning PRN Spiritual Assessment Not assessed during visit Restorationist Assessment Not assessed during this visit Family assessment provided? Not assessed during this visit Chaplain Stephanie Myers MDiv [facility] Pastoral Care Department [phone] office [phone] pager [phone] pager (after 5pm and weekends) * Keisha Leonard RN - 04/24/2020 9:53 AM EST 08:00 Patient up and about on unit. Pleasant and polite. Rates her depression a 0 and her anxietya 0 . States being in the hospital has helped her. States that the medications, talking and therapy has helped her to feel better. Denies any suicidal or homicidal thoughts. Able to contract for safety. Denies any auditory or visual hallucinations. Ate breakfast in the lounge area. Encouraged to attend therapies and voice concerns to staff. No voiced complaints at this time. 12:00 Ate 100% of lunch in dining area. No voiced complaints. 13:30 Patient discharged with all belongings and staff present. Patient states she feels safe and ready for discharge. Patient completed her safety plan and copy given to patient. Denies any suicidalor homicidal thoughts. Able to contract for safety. States mom is picking her up at front lobby. Patient aware of follow up appointment in [place] on . 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 No voiced complaints. Discharged to mom who is waiting outside front lobby in her car. Eliseo Jay RN - 04/24/2020 3:36 AM EST 0030 Orders and lab work reviewed, patient resting quiet in bed, even resp 0600 Has rested quiet overnight, appears to have slept 9 hours, at present is resting quiet in room, at some point has turned the light on, dressed * Kirsten Roa LPN - 04/23/2020 8:08 PM EDT 1550- [facility] Appro[facility]. Introduced self to client. Identified client by name, , and wristband. Client dressed casually in own clothing. Client appears disheveled with nobody odor noted. Client makes appropriate eye contact and responds appropriately in conversation. Client states she is leaving tomorrow and she's very ready to go. Client is social with peers, spending time outside of her room. Client interacts appropriately with staff and peers. Client is independent with ADLs and has a good appetite. Client denies SI/HI/AVH/SIB and agrees to contract for safety. Client appears blunted, pleasant, and friendly. Client denies any further needs. Client left sitting in lounge. 1937- Client asked if she would mind changing rooms. Client amenable stating, I'm leaving tomorrowanyway. 2000- Knocked on client's door. Client awake. Identified client by name, , and wristband. Reassessed client vital signs as per physician order. Administered medication as per physician order. Client tolerated medication with a cup of water. No medication noted upon inspection of oral cavity. Client denied any further needs. Client left resting comfortably with adequate linen. 2057- Client approached this nurse asking for atarax for anxiety. Client stated anxiety 10/01. Identified client by name, , and wristband. Administered medication as per physician order. Client tolerated medication with a cup of water. No medication noted upon inspection of oral cavity. Client denied any further needs. Client turned in mask and left heading for room. * Yoandy Caraballo MD - 04/23/2020 1:08 PM EDT Psychiatry Progress Note Patient Name: Pam Benitez Admit Date: MR #: [id number] : 1980 Perpetual Assessment Pam Benitez is a 39 y.o. female was seen individually, case discussed with nursing staff, medical records were reviewed. Patient was observed spending time laying in the bed in room, stated thatshe has been limiting about her boyfriend and his COVID positive test. Patient had expressed concern about possibility of being placed in isolation at [facility]. Patient is showing some more motiva tion for the medication compliance and outpatient follow-up treatment. Psychomotor activities appeared in lower range. Diagnosis & Plan/Recommendations Supportive therapy Pharmacological treatment Group therapy, activities therapy PRINCIPAL DIAGNOSIS: Schizoaffective disorder (HCC) No new Assessment & Plan notes have been filed under this hospital service since the last note was generated. Service: Behavioral Medicine Comorbid issues impacting my care plan include morbid obesity. Following for Interval History: Review of Systems: Constitutional:No fever, no weight loss Eyes:No diplopia ENT:No sinus drainage CV:No chest pain. No ankle swelling Resp:No dyspnea. No wheezing GI:No abdominal pain.No abdominal distention :No dysuria Neuro:No headache Integumentary:No skin rash MuscSkel:No arthralgias Endo:No polyuria Heme/lymphatic:No apparent lymphadenopathy Allergic/Immunologic:No hives Physical Examination: Vital Signs: BP 100/69 (BP Location: Right arm, Patient Position: Sitting) Pulse 93 Temp 98.2 F (36.8 C) (Oral) Resp 16 Ht 5' 7 Wt 109.3 kg (241 lb) SpO2 95% BMI 37.75 kg/m Mental Status Evaluation: General Appearance & Behavior: obese and cooperative Grooming & Hygiene: street clothes Psychomotor Activity: psychomotor agitation Gait & Station stable gait Speech: soft spoken and pressured Flow of Thought: concrete Thought Associations: Intact Content of Thought: thoughts of self harm Mood: depressed Affect: anxious, worried, fearful, angry, sad and depressed Insight: fair Judgment: poor Orientation: alert and oriented to person, place, time, and circumstances Memory: intact recent and remote Attention: intact Concentration: intact Language: intact Fund of Knowledge: estimated average intelligence Laboratory and Additional Data Reviewed: Laboratory 04/23/20 1:15 PM Microbiology 04/23/20 1:15 PM Pathology 04/23/20 1:15 PM Medications 04/23/20 1:15 PM Transcriptions 04/23/20 1:15 PM Treatment options and alternatives reviewed with patient. Risks, benefits, side effects of all psychiatric medications discussed with patient and informed consent obtained. All questions were answered. Yoandy Caraballo MD 04/23/2020 1:08 PM * Genesis Kerr, ZUMBA INSTRUCTOR - 04/23/2020 12:30 PM EDT 12:30 Recreation Therapy - Pt in the unge upon approach and she was ready for group to start. Pt voiced she was feeling better this afternoon and shared the cogentin helped her tremors. Pt quickly learned a simple sequencing card game 7up. Pt attentive and voiced enjoyment. Pt calm and pleasant with interactions and she remains hopeful for DC tomorrow. Leisure benefits reviewed. * Genesis Kerr CTRS - 04/23/2020 9:00 AM EDT 09:00 Goal Group and AM Warm up - Pt resting in bed upon approach, voiced she thought groups was later but was receptive to joining at this time. Goal Group Identified Feeling: Good. Pt Identified Daily Goal: To get medications straightened out. Pt voiced she has been having tremors in her jaw that she needs medication for. AM Warm Up - Pt was encouraged to follow along to deep breathing exercises and ROM stretches. Pt began stretches but requested to leave group early to discuss symptoms and medications with nursing staff. Pt was controlled and cooperative. * Diana Guerrero LPN - 04/23/2020 7:46 AM EDT Alert and Orientation: A & O X 3 Behavior - cooperative , friendly Thought process, mood, affect, speech: Anxious , pleasant appropriate SI/HI/AH/VH: Denies - contracts for safety agreeing to seek out staff for any question or concern Depression/Anxiety scale: 2/2 Sleep, nutrition, ADL's: 7 hrs , good appetite , showered Goal for the day: To go home Met/partially met/not met: anticipate discharge tomorrow Saturday Medications: NO prn s - Groups: attended 0745 sitting out in dining area 0830 eating breakfast out in dining area 0843 one on one interaction takes place in pts room . Patient (pt) is casually dressed. Pt states sleep was good. Pt states appetite was good. Pt denies SI/HI/voices. Pt rates anxiety a 2/10 and depression a 2/10. Pt spends time out in common area . Pt completes ADL's-showers and brushes teeth.Pt makes good eye contact when speaking. 1030 Pt has no visitors, was on phone 1330 out in lounge with peers 1215 Dr Caraballo in on rounds * Jane Johnson RN - 04/23/2020 1:10 AM EDT 2330 Resting in bed. 0000 Patient currently resting in bed at this time. Special Precautions continue--see precaution monitoring for observations and documentation. 0200 Patient in bed, respirations easy. 0400 Patient resting in bed with eyes closed and even respirations. 0600 Slept approximately 7 hours, from 2315 to present without concerns. Patient remains in bed resting. * Kirsten Roa LPN - 04/22/2020 8:55 PM EDT 1537- Client approached this nurse stating anxiety 08/31 and asking for medication. Introduced self to client. Identified client by name, , and wristband. Administered medication as per physician order. Client tolerated medication with a cup of water. No medication noted upon inspection of oral ca vity. Client denied SI/HI/AVH/SIB and agreed to contract for safety. Client dressed casually in ownclothing. Client appears clean with no body odor noted. Client makes appropriate eye contact and responds appropriately in conversation. Client is seclusive to room and spends much of her time sleeping. Client is independent with ADLs and has a good appetite. Client appears calm, pleasant, and anxious. Client denies any further needs. Client left heading to room. 2016- Knocked on client's door. Client sleeping. Awakened client. Identified client by name, , and wristband. Reassessed client blood pressure as per physician order. Administered medication as per physician order. Client tolerated medication with a cup of water. No medication noted upon inspection of oral cavity. Client denied any further needs. Client left resting comfortably with adequate linen. * Yoandy Caraballo MD - 04/22/2020 6:46 PM EDT Psychiatry Progress Note Patient Name: Pam Benitez Admit Date: MR #: [id number] : 1980 Perpetual Assessment Pam Benitez is a 39 y.o. female was seen individually, case discussed with nursing staff, medical records were reviewed. Patient stated that she is feeling somewhat guilty as today nelson her daughter's birthday. Patient had verbalized angry feelings toward the mother for not helping fianc as he has been on isolation after being tested positive for COVID-19. Patient had verbalized feeling of hopelessness, helplessness. Psychomotor activities appeared in less agitated range. She is trying interest in participating in group therapy and activities therapy. Diagnosis & Plan/Recommendations Supportive therapy Pharmacological treatment Group therapy, activities therapy PRINCIPAL DIAGNOSIS: Schizoaffective disorder (HCC) No new Assessment & Plan notes have been filed under this hospital service since the last note was generated. Service: Behavioral Medicine Comorbid issues impacting my care plan include morbid obesity. Following for Interval History: Review of Systems: Constitutional:No fever, no weight loss Eyes:No diplopia ENT:No sinus drainage CV:No chest pain. No ankle swelling Resp:No dyspnea. No wheezing GI:No abdominal pain.No abdominal distention :No dysuria Neuro:No headache Integumentary:No skin rash MuscSkel:No arthralgias Endo:No polyuria Heme/lymphatic:No apparent lymphadenopathy Allergic/Immunologic:No hives Physical Examination: Vital Signs: BP 110/76 Pulse (!) 101 Temp 97.6 F (36.4 C) Resp 14 Ht 5' 7 Wt 109.3 kg (241 lb) [id number]% BMI 37.75 kg/m Mental Status Evaluation: General Appearance & Behavior: older than stated age, obese and cooperative Grooming & Hygiene: street clothes Psychomotor Activity: psychomotor agitation Gait & Station stable gait Speech: loud, pressured and rambling Flow of Thought: disorganized Thought Associations: Intact Content of Thought: thoughts of self harm Mood: stressed out Affect: anxious, worried, fearful and irritable Insight: fair Judgment: poor Orientation: alert and oriented to person, place, time, and circumstances Memory: intact recent and remote Attention: intact Concentration: intact Language: intact Fund of Knowledge: estimated average intelligence Laboratory and Additional Data Reviewed: Laboratory 04/22/20 6:51 PM Microbiology 04/22/20 6:51 PM Pathology 04/22/20 6:51 PM Medications 04/22/20 6:51 PM Transcriptions 04/22/20 6:51 PM Treatment options and alternatives reviewed with patient. Risks, benefits, side effects of all psychiatric medications discussed with patient and informed consent obtained. All questions were answered. Yoandy Caraballo MD 04/22/2020 6:46 PM * Genesis Kerr, ZUMBA INSTRUCTOR - 04/22/2020 1:00 PM EDT 13:00 Recreation Therapy - Pt in the unge upon approach and she was receptive to joining group. Pt worked with peers on a trivia word puzzle about fall leisure activities. Pt followed along and didwell with task. Pt was controlled and pleasant. Voiced hopefulness for DC Saturday. * Tran Myers, JOSÉ MIGUEL - 04/22/2020 9:15 AM EDT 0725 Pt at nurses' station, requesting and provided with mask. Education provided. 0805 Pt sitting in dining room. Behavior calm, friendly, smiling occasionally during interaction. Casually dressed. Affect full, mood euthymic at this time. When asked how she slept, pt replies I slept great, except I had some very vivid dreams. Pt denies anxiety and depression. Denies SI/HI/AH/VH or any feelings of self harm. Pt states I feel really good today. Denies needs at this time. 0843 PRN Hydroxyzine po administered as ordered by Mindy Jerry LPN for pt's complaint of increased anxiety she rated 08/31. 0915 Pt leaves group, stating I can't do this today as she exits the room. Proceeds to her room. 1305 Pt attending group 1310 Dr. Caraballo making rounds, meeting with pt * Vandana Oliveira, ZUMBA INSTRUCTOR - 04/22/2020 9:00 AM EDT [id number] Goal Group: Pt brought self to group. Dressed appropriately in street clothes, and wearing mask. PT A&O x. Controlled and cooperative, bright and pleasant throughout group. PT did leavegroup early do to becoming tired from medication that she had received earlier in the AM for her anxiety. PT cited that she was feeling excited this date do to being able to be DC this weekend. Pt set goal for the day of take things in little steps because I have a lot to do when I get home and I want to be successful with things and I won't be if I try to do too much . Pt able to give appropriate examples of problems that she planned to handle in measurable ways and supports that she can use. * Shola Jerry LPN - 04/22/2020 8:45 AM EDT 0843 Pt received PRN Atarax 50mg PO upon request for increased anxiety, rating it 3/10. Pt reports it's just about my fiance being all alone and being sick; he refuses to go to the hospital b/c he'safraid he'll get admitted and not see me since I wouldn't be allowed to visit. Pt states she has been coloring to keep herself distracted. Denies having any other concerns. * Eliseo Dobbs RN - 04/22/2020 1:15 AM EDT 0020 Orders and lab work reviewed, patient resting quiet in bed, even resp 0600 Has rested well overnight, appears to have slept 9-10 hours to this point, and presently remains asleep * Yoandy Caraballo MD - 04/21/2020 7:53 PM EDT Psychiatry Progress Note Patient Name: Pam Benitez Admit Date: MR #: [id number] : 1980 Perpetual Assessment Pam Benitez is a 39 y.o. female was seen individually, case discussed with nursing staff, medical records were reviewed. Patient stated that she had picked up progressive path of destruction lately and had started using methamphetamine lately. Patient claimed that she has no self worth and needed to stay positive. She remained preoccupied with , thoughts about her boyfriend tested positive for COVID-19, and verbalize feeling of helplessness. She has less pressured speech and less rambling at this time. Diagnosis & Plan/Recommendations Supportive therapy Pharmacological treatment Group therapy, activities therapy PRINCIPAL DIAGNOSIS: Schizoaffective disorder (HCC) No new Assessment & Plan notes have been filed under this hospital service since the last note was generated. Service: Behavioral Medicine Comorbid issues impacting my care plan include non-adherence and substance use. Following for Interval History: Review of Systems: Constitutional:No fever, no weight loss Eyes:No diplopia ENT:No sinus drainage CV:No chest pain. No ankle swelling Resp:No dyspnea. No wheezing GI:No abdominal pain.No abdominal distention :No dysuria Neuro:No headache Integumentary:No skin rash MuscSkel:No arthralgias Endo:No polyuria Heme/lymphatic:No apparent lymphadenopathy Physical Examination: Vital Signs: BP 108/68 Pulse (!) 102 Temp 97.9 F (36.6 C) Resp 16 Ht 5' 7 Wt 109.3 kg (241 lb) [id number]% BMI 37.75 kg/m Mental Status Evaluation: General Appearance & Behavior: older than stated age, obese, cooperative and defensive Grooming & Hygiene: street clothes Psychomotor Activity: psychomotor agitation Gait & Station stable gait Speech: pressured and rambling Flow of Thought: disorganized Thought Associations: Intact Content of Thought: thoughts of self harm Mood: stressed out Affect: anxious, worried, fearful, irritable, angry and labile Insight: poor Judgment: poor Orientation: alert and oriented to person, place, time, and circumstances Memory: intact recent and remote Attention: adequate Concentration: reduced Language: intact Fund of Knowledge: estimated average intelligence Laboratory and Additional Data Reviewed: Laboratory 04/21/20 7:59 PM Microbiology 04/21/20 7:59 PM Pathology 04/21/20 7:59 PM Medications 04/21/20 7:59 PM Transcriptions 04/21/20 7:59 PM Treatment options and alternatives reviewed with patient. Risks, benefits, side effects of all psychiatric medications discussed with patient and informed consent obtained. All questions were answered. Yoandy Caraballo MD 04/21/2020 7:53 PM * Penelope Mendieta RN - 04/21/2020 6:24 PM EDT 1605 Pt is sitting in dining area coloring. Pt is smiling and affect is bright today. Pt rates depression a 0 today. Pt rates anxiety a 0 today. This is the best day I've had in a long time. I feel level and happy. He (Dr Caraballo) said he is going to discharge me this weekend. Pt wearing a mask when pt is out of room. Pt denies suicidal or homicidal ideation and self harm thoughts. Pt denies hallucinations. Pt denies any other current needs/complaints. 1640 Pt eating in room. 1720 Pt now resting in bed. Pt is awake. 1745 Pt given Ibuprofen for level 3 menstrual cramps. 1810 Pt on the phone in room. 1840 Pt resting in bed, eyes closed, resps even. 1935 Pt resting in bed with eyes closed, resps even and non labored. 0 Pt in room on phone. 2151 Pt med compliant this shift. Pt now resting in bed with eyes closed, resps even and non labored. 2228 Pt resting quietly, resps even and non labored. * Vandana Oliveira CTRS - 04/21/2020 1:15 PM EDT Pt on phone call with family and did not wish to end call to join group. * Sanju Varela LPCC-S - 04/21/2020 12:03 PM EDT Behavioral Health Treatment Plan Update Date: 04/21/2020 Time: 12:04 PM Patient Name: Pam Benitez Date of : 1980 Sex: Female Patient Active Problem List Diagnosis Date Noted Schizoaffective disorder, bipolar type ([facility]) 04/16/2020 Amphetamine abuse ([facility]) 04/16/2020 Schizoaffective disorder ([facility]) 04/16/2020 Diagnosis Charlotte I: Schizoaffective Disorder, Alcohol Abuse, Amphetamine Abuse Charlotte II: No diagnosis Charlotte III: Patient Active Problem List Diagnosis Date Noted Schizoaffective disorder, bipolar type ([facility]) 04/16/2020 Amphetamine abuse ([facility]) 04/16/2020 Schizoaffective disorder ([facility]) 04/16/2020 Charlotte IV: other psychosocial or environmental problems Charlotte V: 41-50 serious symptoms Expected Discharge Date: ELOS: 3-5 Precautions Precautions: Suicide Patient Presenting Issues: Patient's Primary Presenting Issue Patient's Primary Presenting Issue: Mood instablilty Suicidal Symptoms: Ideation Suicidal Goals: Free from suicidal thoughts Days To Improvement Of Goal: 5-7 Suicidal Treatment Interventions: Medication management/evaluation, Medication education, Group psychoeduction, Handouts psychoeducation, Individual psychoeducation Psychosis Symptoms: Paranoia Psychosis Treatment Goals: Control psychosis Days To Improvement Of Goal: 5- Psychosis Interventions: Medication management/evaluation, Medication education, Group psychoeducation, Handouts psychoeducation, Individual psychoeducation Mood Instability Symptoms: Mood Swings Mood Instability Treatment Goals: Stabilize mood Days To Improvement Of Goal: 10-28 Mood Instability Interventions: Medication management/evaluation, Medication education, Group psychoeduction, Handouts psychoeducation, Individual psychoeducation Addiction Types: Alcohol, Stimulants Addiction Treatment Goals: Improvement of presenting issues, Patient education Days To Improvement Of Goal: 10-28 Addiction Interventions: Medication management/evaluation, Medication education, Group psychoeduction, Handouts psychoeducation, Individual psychoeducation, Behavior intervention plan, Substance abuse education, Substance abuse outpatient treatment Status Of Goal: Unchanged Precautions Precautions: Suicide Seclusion/Restraint Date none Interventions to reduce Seclusion/Restraint none Discharge Needs Anticipated Facility Type: Psychiatric aftercare, Substance abuse treatment Criteria For Discharge Criteria For Discharge: Maximum benefit obtained Additional Comments: Patient will return home when discharged and followup has been scheduled with [facility] Physician, Registered Nurse, Wildland Firefighter, Adjunct Therapist included in treatment team discussion. Treatment team members present: Sanju Fournier Wildland Firefighter Patient Signature Date Patient's Response To Treatment Plan: Social Worker Signature Date * Sanju Varela LPCC-S - 04/21/2020 11:47 AM EDT Patient's status/progress was reviewed in morning safety huddle. Nursing reported that the patient had slept for 14 hours and was happy as she found out she had a place to go since her boyfriend had contracted COVID. I stopped by patient's room and patient was sleeping. Patient's followup has been completed and shehas an appointment scheduled at [facility] [place] for at 2:30 with her nurse practitioner. * Mayela Bowen RN - 04/21/2020 10:52 AM EDT 0930 Talking with pt one to one. Behavior is calm and cooperative. Full affect. Groomed and dressedcasually in own clothes. Pt provided with mask. Pt reports eating and sleeping well. Pt states Last night I slept the best I have in a long time . Pt states this is the first day I've felt like myself in forever. I feel so much better today. Pt believes the Lamictal is very helpful. Pt rates anxiety and depression 0/10. Denies SI/HI/H. No delusions observed. Pt contracts for safety. Pt denies any other needs at this time. Will continue to monitor. 0945 Pt attending group. 1400 Pt social with peers. * Vandana Oliveira, ZUMBA INSTRUCTOR - 04/21/2020 9:20 AM EDT [id number] Goal Group: [place] [facility] [place] in [place] clothes, and approached this television script writer inquiring about group. PT willing to attend. PT A&O x. Pt able to share that she was feeling fabulous this date do to I feel so much better then when I came in my anxiety is a zero as well as my depression . PT able to share that she did not have a good start to her day Saturday but that it did improve throughout the day and that she was handling her emotions this date and not in need of PRN medication. Pt set goal for the day of working on getting home because tomorrow in my daughters birthday and Saturday is mine and we a hotel room booked for Saturday so that we can spend time together and have fun . PT bright with affect, pleasant in demeanor and controlled and cooperative. * Cy Boothe RD - 04/21/2020 8:38 AM EDT Nutrition Care Initial Assessment Reason for visit: Dietitian Screen Nutrition Diagnosis: no current nutrition problem Nutrition Intervention: meal rounds Meal and Snacks Nutrition Prescription: Diet: regular Nutrition Goals: PO intake > 75% most meals Start Date:04/21/2020 Expected End Date:05/01/2020 Nutrition Education: No needs at this time Assessment: sshizoaffective Pertinent clinical information: Past Medical History: Diagnosis Date Schizoaffective disorder (HCC) Height: 5' 7 Current weight: 109.3 kg (241 lb) BMI Body mass index is 37.75 kg/m . Weight hx: Wt Readings from Last 5 Encounters: 04/16/20 109.3 kg (241 lb) Current diet order: regular Recent intake: 75%. Current intake Likely meets estimated needs. Patient/family comments: selecting menu Difficulty Chewing/Swallowing: No Skin Integrity: Intact GI Function: WNL Physical Appearance: no signs or symptoms of malnutrition Nutrition Focus Physical Exam Type: Visual Labs: No results for input(s): NA, K, BICARB, CL, GLUCOSE, BUN, CREATININE, MG, PHOS in the last 72hours. Scheduled Meds: benztropine 0.5 mg Oral BID lamoTRIgine 50 mg Oral BID nicotine 1 patch Transdermal Daily propranoloL 10 mg Oral BID Continuous Infusions: Estimated Energy Needs Total Energy Estimated Needs: 1750-1800kcal Method for Estimating Needs: 23kcal/kg adj Total Protein Estimated Needs: 85gm Method for Estimating Needs: 1.1gm/kg adj Ed Shyann, MS, RDN, LD Dietitian Office * Destinee Amezquita LPN - 04/21/2020 2:22 AM EDT 0222 pt resting quietly in bed with eyes closed respirations unlabored 0400 continues to rest quietly in bed with eyes closed and respirations unlabored 0638 pt appears to have slept for approximately 14 hours * Penelope Mendieta RN - 04/20/2020 6:41 PM EDT 1550 Pt is casually dressed laying in bed. Pt has low energy level. Pt spoke of finding out today that her fiance has tested positive for Covid 19. Pt rates depression a 3 today. Pt rates anxiety a 2today. Pt denies suicidal or homicidal ideation and self harm thoughts. Pt denies hallucinations. Pt denies any other current needs/complaints. 1635 Pt eating dinner in room. 183 Pt has continued to lay in bed with low energy level. Pt currently on phone with mother. 2036 Pt has continued to have low energy level and be seclusive to room. Pt is now on the phone in room. Pt med compliant this shift. Pt denies any other current needs/complaints. 2220 Pt continues to rest in bed with even respirations. * Yoandy Caraballo MD - 04/20/2020 6:33 PM EDT Psychiatry Progress Note Patient Name: Pam Benitez Admit Date: MR #: [id number] : 1980 Perpetual Assessment Pam Benitez is a 39 y.o. female is a poorly groomed on approach, laying in the bed, showing nointerest in surrounding. Patient had claimed that her 43-year-old boyfriend was tested positive forCOVID. Patient was tested for COVID on the unit and is negative. Patient had verbalized angry feelings toward the mother for not helping the boyfriend while she is in the hospital. She verbalized feeling of hopelessness, helplessness, worthlessness Diagnosis & Plan/Recommendations Supportive therapy Pharmacological treatment Group therapy, activities therapy PRINCIPAL DIAGNOSIS: Schizoaffective disorder (HCC) No new Assessment & Plan notes have been filed under this hospital service since the last note was generated. Service: Behavioral Medicine Comorbid issues impacting my care plan include morbid obesity. Following for Interval History: Review of Systems: Constitutional:No fever, no weight loss Eyes:No diplopia ENT:No sinus drainage CV:No chest pain. No ankle swelling Resp:No dyspnea. No wheezing GI:No abdominal pain.No abdominal distention :No dysuria Neuro:No headache Integumentary:No skin rash MuscSkel:No arthralgias Endo:No polyuria Heme/lymphatic:No apparent lymphadenopathy Allergic/Immunologic:No hives Physical Examination: Vital Signs: BP 94/65 (BP Location: Left arm, Patient Position: Standing) Pulse (!) 111 Temp 97.8 F (36.6 C) Resp 18 Ht 5' 7 Wt 109.3 kg (241 lb) SpO2 96% BMI 37.75 kg/m Mental Status Evaluation: General Appearance & Behavior: older than stated age, obese and minimally engaged Grooming & Hygiene: unkempt and poor hygeine Psychomotor Activity: psychomotor retardation Gait & Station stable gait Speech: loud, pressured and rambling Flow of Thought: concrete Thought Associations: Intact Content of Thought: thoughts of self harm Mood: depressed Affect: anxious, worried, irritable, labile, sad and depressed Insight: poor Judgment: poor Orientation: alert and oriented to person, place, time, and circumstances Memory: intact recent and remote Attention: intact Concentration: intact Language: intact Fund of Knowledge: estimated average intelligence Laboratory and Additional Data Reviewed: Laboratory 04/20/20 6:37 PM Microbiology 04/20/20 6:37 PM Pathology 04/20/20 6:37 PM Medications 04/20/20 6:37 PM Transcriptions 04/20/20 6:37 PM Treatment options and alternatives reviewed with patient. Risks, benefits, side effects of all psychiatric medications discussed with patient and informed consent obtained. All questions were answered. Yoandy Caraballo MD 04/20/2020 6:33 PM * Tin Parvin Smith CNP - 04/20/2020 2:53 PM EDT Hospital Medicine Inpatient Consult Follow-up 04/20/2020 Parvin Castle CNP Patient: Pam Benitez Date of : 1980 (39 y.o.) MR #: [id number] PCP: Madina Vail MD Referring Provider: Yoandy Caraballo MD Consult: Gideon Long MD: Hospitalist assistance with medical management Admit Date: Expected Discharge Date: Of note, this patient was admitted to [facility] following the declaration of aNational State of Emergency due to the COVID-19 pandemic, as issued by the tent finisher on 09/04/2019. ASSESSMENT/PLAN: Principal Problem: Schizoaffective disorder (HCC) Active Problems: Schizoaffective disorder, bipolar type (HCC) Amphetamine abuse (HCC) 04/20- pt was informed by her fiance that he tested positive for covid yesterday. Her mother is in quarantine. Pt had a neg covid test 4 days ago, but has been exposed prior to coming in. Covid test ordered and returned negative. . SUBJECTIVE: History Since Last Visit: anxiety due to fiance with covid Current Scheduled Meds: benztropine 0.5 mg Oral BID lamoTRIgine 50 mg Oral BID nicotine 1 patch Transdermal Daily propranoloL 10 mg Oral BID Review of Systems: All other systems reviewed and negative other than HPI OBJECTIVE: Physical Examination: Vital Signs: BP 94/65 (BP Location: Left arm, Patient Position: Standing) Pulse (!) 111 Temp 97.2 F (36.2 C)(Oral) Resp 18 Ht 5' 7 Wt 109.3 kg (241 lb) SpO2 96% BMI 37.75 kg/m General Appearance: Alert, well appearing, and in no acute distress. HEENT: Head - Normocephalic, atraumatic. Eyes - SAMUEL bilaterally and EOMI. Ears - normal external appearance, hearing intact. Nose - normal, no erythema. Throat - mucous membranes moist, pharynx without lesions. Neck: Supple, trachea midline. Cardiovascular: S1, S2 normal. No murmurs, rubs, clicks or gallops appreciated. No pedal edema. Respiratory: Lungs clear to auscultation, no wheezes, rales or rhonchi heard. Abdomen: Soft, non-tender, normal bowel sounds, non-distended, no masses or organomegaly appreciated. Neurological: Grossly normal motor and sensory exam. No focal deficits. Musculoskeletal: No joint tenderness, deformity or swelling. Skin: Normal coloration and turgor. No rashes. Psych: Alert, oriented x 3. Normal mood and affect. Laboratory and Additional Data Reviewed: Results/Medications Reviewed 04/20/20 2:54 PM: Invalid input(s): CO2 Invalid input(s): LABALBU CULTURES: Reviewed 04/20/20 2:54 PM Radiology/Imaging: Reviewed 04/20/20 2:54 PM * Noreen Morocho CTRS - 04/20/2020 1:00 PM EDT Recreation Therapy: Pt in bed and refused to attend stating I just took anxiety medicine. * Shola Jerry LPN - 04/20/2020 10:36 AM EDT 0925 Pt overheard to be yelling on the phone in the lounge and then hanging up. Pt then ambulated to her room while telling staff at the nurses station I just need to calm down; my mom won't let me go take care of my fiance. Nurse informed pt to meet in her room to talk and receive morning meds. Pt agreed. 0930 Pt is laying on her bed; tense and c/o feeling frustrated. Rates depression a 0 and anxiety a 10/10. Pt has been med compliant; denies having any side effects. Pt also given PRN Geodon 20mg PO for agitation. Reports sleep and appetite are good. Pt had just gotten off the phone with her mother.Pt states my fiance just got told he has covid and she won't let me get discharged to go take carehim; he's got a lot of other medical issues and I'm just afraid he'll before I get home. Nurseencouraged pt to trust that if he had anything serious, the hospital would have kept him. Pt statesher mother is now in quarantine d/t being around her fiance. Pt is currently asymptomatic, but this nurse will alert LOCKET MAKER. Denies having any suicidal ideations or thoughts to harm self or others. Denies having any other concerns at this time. 1005 This nurse phoned pt's mother/guardian, Harriett Benitez, to confirm that she was in quarantine; Harriett did confirm this and expressed concern of her who is also in quarantine. He's compromised b/c of his comorbidities; we're going to get tested. Harriett requesting to be notified if ptis retested. 1020 This nurse notified Parvin Castle LOCKET MAKER that per guardian, Harriettshad Benitez, pt's fiance did testpositive for covid-19 as of yesterday and that the fiance, herself and her are all in quarantine. 1033 LOCKET MAKER put in order for covid test. Pt in her room in isolation at this time. 1035 This nurse notified RR team of Covid test at this time. 1053 Pt received covid test. 1145 Pt notified that covid test came back negative. Pt encouraged to continue to wear mask. Pt agreed. 1241 Pt received PRN Atarax 50mg PO per Mindy Miller LPN for anxiety. 1245 Pt opting to lay down to rest. 1459 Pt asleep in bed at end of shift. * Sanju Varela, [facility] - 04/20/2020 9:31 AM EDT This worker stopped at the patient's room to see how she was doing. Patient reported that she did talk with her mother (guardian) on the telephone and her mother spoke with the court regarding the hearing scheduled for Wed at 9:00. The patient is now worried as she has learned her boyfriend has contracted COVID and she reported that she needs to be there for him as he has no food and no way to get anything as he has to quarantine. This worker advised the patient to let Dr. Caraballo know as he is the only one who can discharge her. Advised the patient that if patient has COVID she would not be able to stay with him anyway. Patient was friendly and thanked this worker for stopping. * Vandana Oliveira CTRS - 04/20/2020 9:15 AM EDT PT ws approached in her room to attend group. PT tearfully shared that she had just learned that my fiance has COVID and I am really upset right now so no I am not coming . * Viji Chapman RN - 04/20/2020 6:09 AM EDT 0608 Comes to the nurses station asking for something for anxiety . Staff assess triggers which ptstates the people here are starting to annoy me.They were making racist comments about a staff which I didn't like . Rates Anxiety 12/01. Atarax PRN given. Oral cavity clear. 0610 Pt goes into her room. * Destinee Amezquita LPN - 04/20/2020 12:07 AM EDT 0007 pt resting quietly in bed with eyes closed respirations unlabored 0349 continues to rest quietly in bed with eyes closed and respirations unlabored 0629 pt appears to have slept for approximately 12 hours, pt woke up early. * Yoandy Caraballo MD - 04/19/2020 7:34 PM EDT Psychiatry Progress Note Patient Name: Pma Benitez Admit Date: MR #: [id number] : 1980 Perpetual Assessment Pam Benitez is a 39 y.o. female seen individually, case discussed with nursing staff, medical records reviewed. Patient claimed that she is under a lot of stress as she cannot return back to live with the trailer as her neighbors had caused trouble to her. Patient was rambling about possibly buying the new house where she ran with her boyfriend/fianc can engage in art work and selling it andmaking money. Patient stated that lately she feeling that I was a burden to my mother , as mother is guardian and involved in patient's finances. Patient remained hyperactive, hypertalkative with pressured speech is rambling, talking nonstop. Discussed at length regarding adding mood stabilizer, was explained in detail of the role of the prescribed medication, known indication, adverse effect, contraindication, alternatives to treatment. She is prescribed Lamictal 50 mg twice daily, will monitor medication compliance closely Diagnosis & Plan/Recommendations Supportive therapy Pharmacological treatment Group therapy, activities therapy PRINCIPAL DIAGNOSIS: Schizoaffective disorder (HCC) No new Assessment & Plan notes have been filed under this hospital service since the last note was generated. Service: Behavioral Medicine Comorbid issues impacting my care plan include morbid obesity. Following for Interval History: Review of Systems: Constitutional:No fever, no weight loss Eyes:No diplopia ENT:No sinus drainage CV:No chest pain. No ankle swelling Resp:No dyspnea. No wheezing GI:No abdominal pain.No abdominal distention :No dysuria Neuro:No headache Integumentary:No skin rash MuscSkel:No arthralgias Endo:No polyuria Heme/lymphatic:No apparent lymphadenopathy Allergic/Immunologic:No hives Physical Examination: Vital Signs: BP 111/75 Pulse 87 Temp 97.2 F (36.2 C) Resp 16 Ht 5' 7 Wt 109.3 kg (241 lb) SpO2 97% BMI 37.75 kg/m Mental Status Evaluation: General Appearance & Behavior: obese Grooming & Hygiene: street clothes Psychomotor Activity: psychomotor agitation Gait & Station stable gait Speech: hyperverbal, loud, pressured, word salad and rambling Flow of Thought: concrete Thought Associations: Intact Content of Thought: delusions Mood: okay Affect: anxious, worried, fearful, irritable, bright and hypomanic Insight: poor Judgment: poor Orientation: alert and oriented to person, place, time, and circumstances Memory: intact recent and remote Attention: adequate Concentration: poor Language: intact Fund of Knowledge: estimated average intelligence Laboratory and Additional Data Reviewed: Laboratory 04/19/20 7:41 PM Microbiology 04/19/20 7:41 PM Pathology 04/19/20 7:41 PM Medications 04/19/20 7:41 PM Transcriptions 04/19/20 7:41 PM Treatment options and alternatives reviewed with patient. Risks, benefits, side effects of all psychiatric medications discussed with patient and informed consent obtained. All questions were answered. Yoandy Caraballo MD 04/19/2020 7:34 PM * Taty Govea, JOSÉ MIGUEL - 04/19/2020 5:36 PM EDT 1730 Pt with low energy, seclusive to room, resting in bed, ate dinner in her room. 1930 Pt continues to rest quietly in her room. 2100 Pt out to dining area for evening snack, disheveled in casual dress, affect is flat, eye contact isgood. Pt states she had a really good day today. States she was up early to shower and that is why she is tired this evening. Denies suicidal thoughts, denies any hallucinations, Pt prefers to keepher nicotine patch on for the night, Pt then returned to bed. 2230 Pt resting quietly in bed. * Genesis Kerr, ZUMBA INSTRUCTOR - 04/19/2020 3:30 PM EDT 15:30 Recreation Therapy - Pt resting in bed and she declined to attend group at this time. Voiced feeling tired from waking up early today and from medications. * Sanju Varela LPCC-S - 04/19/2020 2:21 PM EDT This worker received a call from Shae Townsend with the [facility]. Shae Townsend reported that she pulled the patient over Saturday evening and will be filing the paperwork in the which will creat a court hearing on Saturday at 9:00 am. Shae Townsend reported that since the patient has a guardian, her guardian would need to contact the [facility] and let them know that the patient cannot attend the hearing as the patient is in the hospital. This worker called the patient's guardian (Harriett Benitez) and left her a message advising her just the same. I provided the contact number for the [place] [facility] along with the contact number for Shae Townsend in case the guardian had any questions. * Genesis Kerr CTRS - 04/19/2020 1:05 PM EDT 13:05 - 13:35 Goal Group and Exercise - Pt in her room upon approach and she was receptive to joining group. Goal Group Identified Feeling: happy. Pt shared she woke up early and in a good mood and has had a good day. Pt Identified Daily Goal: To attend all afternoon groups. Exercise - Pt was encouraged to follow along to deep breathing exercises and ROM stretches. Pt put forth good effort and completed all exercises. Pt was calm and controlled. The benefits of deep breathing and regular exercise were discussed. * Sanju Varela LPCC-S - 04/19/2020 10:53 AM EDT This worker stopped at the patient's room and presented her with some homeless fpc resources inthe event that she would lose her trailer. The patient reported that he may not know until the end of April but appreciated the resources. Patient reported that she and her boyfriend would find another place to stay. The patient reported another concern of a court hearing tomorrow at 9:00 in [place] for [place]. The patient signed a release of information form for [facility]. I called [facility] and the auto parts clerk of courts reported no hearing on file for the patient. I went back and advised the patient and she said a Shae Montanez was the Boots And Shoes Supervisor that had stooped her. The patient gave verbal consent for this worker to call the local State Police and inquire. I called the [place] State [employer] office and they reported no information pertaining to a hearing. The dispatcher reported that Shae Montanez would be on station around 2:00 pm and she would have her call this worker. * Sanju Varela LPCC-S - 04/19/2020 9:35 AM EDT This worker called [facility] and scheduled a followup appointment for the patient. I entered the appointment information in the patient's AVS * Sanju Varela LPCC-S - 04/19/2020 9:28 AM EDT Attempted to call patient's guardian but no answer * Sanju Varela LPCC-S - 04/19/2020 9:19 AM EDT Patient's status/progress reviewed in morning safety huddle. Nursing reported that the patient had a bad night as she learned that she might not be able to keep her trailer and she called her mother but cannot stay with her mother. Patient slept for 7 hours. * Shola Jerry LPN - 04/19/2020 8:57 AM EDT 0833 Pt is laying awake in bed; calm and controlled. Describes mood as much better today; yesterday I just felt defeated; then it dawned on me that this is temporary and I have a lot of people that love me. Nurse commended pt for her positivity. Rates depression a 0 and anxiety a 0. Pt has been med compliant; denies having any side effects. Pt states I'm taking my meds at different times whileI'm here, so my body is trying to get used to that; they gave me some Atarax yesterday and that seemed to help. Reports sleep and appetite are good. Denies having any suicidal ideations or thoughts to harm self or others. Pt reports goal for the day is talk to the doctor about wanting to go home soon; I'm ready. Denies having any other concerns at this time. 1150 Pt eating lunch in the dining room. 1220 Pt reports I'm feeling so good; makes me so happy. 1420 Pt had upsetting phone call from her mother at this time. Pt was overheard raising her voice, but then ended the call on her own. Pt walked to her room. This nurse checked on pt. Pt states it'jermaine birthday and she still just wants to blame me for everything, so I just wished her a happy birthday and said I had to go; I was doing so good today. Nurse encouraged pt to not let that phone call ruin the progress pt has made; pt agreed. 1441 Pt received PRN Motrin 600mg for a headache, rating the pain 5/10. 1503 Pt asleep in bed at end of shift. * Ghislaine Singh RN - 04/19/2020 2:59 AM EDT Patient is resting quietly, eyes closed, respirations even and non labored. * Eliseo Dobbs RN - 04/19/2020 12:21 AM EDT 0010 Orders and lab work reviewed, patient resting quiet in bed, even resp 0600 From second and third shift charting, patient appears to have slept 7-8 hours to this point, was up an completed ADls, back to bed at this point, resting quiet * Yoandy Caraballo MD - 04/18/2020 9:52 PM EDT Psychiatry Progress Note Patient Name: Pam Benitez Admit Date: MR #: [id number] : 1980 Perpetual Assessment Pam Benitez is a 39 y.o. female was seen individually, case discussed with nursing staff, medical records were reviewed. Patient stated that she had moved in a trailer along with her boyfriend and stated that neighbors had been a problem and as a result will lose the trailer and will not have any place to go to. Patient had verbalized angry feelings toward the mother, as mother is a guardian and stated mother wants to control me . Patient is alert angry, irritable, impulsive, has pressured speech, is poorly groomed spending time laying in the bed. Psychomotor activities appeared in agitated range. She remained seclusive isolated withdrawn. Diagnosis & Plan/Recommendations Supportive therapy Pharmacological treatment Group therapy, activities therapy PRINCIPAL DIAGNOSIS: Schizoaffective disorder (HCC) No new Assessment & Plan notes have been filed under this hospital service since the last note was generated. Service: Behavioral Medicine Comorbid issues impacting my care plan include morbid obesity. Following for Interval History: Review of Systems: Constitutional:No fever, no weight loss Eyes:No diplopia ENT:No sinus drainage CV:No chest pain. No ankle swelling Resp:No dyspnea. No wheezing GI:No abdominal pain.No abdominal distention :No dysuria Neuro:No headache Integumentary:No skin rash MuscSkel:No arthralgias Endo:No polyuria Heme/lymphatic:No apparent lymphadenopathy Physical Examination: Vital Signs: BP 103/71 Pulse 73 Temp 97.8 F (36.6 C) Resp 16 Ht 5' 7 Wt 109.3 kg (241 lb) SpO2 96% BMI 37.75 kg/m Mental Status Evaluation: General Appearance & Behavior: older than stated age, cooperative, defensive and hostile Grooming & Hygiene: unkempt and street clothes Psychomotor Activity: psychomotor agitation Gait & Station stable gait Speech: loud, pressured, word salad and rambling Flow of Thought: concrete Thought Associations: Intact Content of Thought: thoughts of self harm Mood: stressed out Affect: hostile, irritable, angry, labile, sad, depressed and hopeless Insight: fair Judgment: poor Orientation: alert and oriented to person, place, time, and circumstances Memory: intact recent and remote Attention: adequate Concentration: intact Language: intact Fund of Knowledge: estimated average intelligence Laboratory and Additional Data Reviewed: Laboratory 04/18/20 9:56 PM Microbiology 04/18/20 9:56 PM Pathology 04/18/20 9:56 PM Medications 04/18/20 9:56 PM Transcriptions 04/18/20 9:56 PM Treatment options and alternatives reviewed with patient. Risks, benefits, side effects of all psychiatric medications discussed with patient and informed consent obtained. All questions were answered. Yoandy Caraballo MD 04/18/2020 9:52 PM * Penelope Mendieta RN - 04/18/2020 7:01 PM EDT 1610 Pt is dressed in hospital attire laying in bed. Pt has flat affect and depressed mood. Pt rates depression a 7 today. Pt rates anxiety a 5 today. It's a bad day. Pt denies suicidal or homicidal ideation and self harm thoughts. Pt denies hallucinations. Pt denies any other current needs/complaints. 1635 Pt eating in dining area. 1906 Pt returned to bed after dinner. Pt is seclusive to room with continued low energy level. 2226 Pt has remained seclusive to room all shift with low energy level. Pt med compliant. * Sanju Vaerla LPCC-S - 04/18/2020 11:42 AM EDT This worker reviewed the patient's chart and the patient's guardian (Harriett Benitez) consented on the voluntary psych consent and a release of information form [facility]. I met with the patient and she provided this worker with psychosocial informationand reported that she continues to see Ир[facility]indo C[facility] for [facility] management. The patient reported that she has a place to go and transportation home. I presented the patient with a safety plan and encouraged her to complete the safety plan on her own. Advised the patient that this worker could help with the safety plan if needed. I asked the patient if there wasanything else this worker could do for her and no other needs for didscharge were identified by the patient at this time. Patient was friendly and cooperative. * Sanju Varela LPCC-S - 04/18/2020 10:29 AM EDT Behavioral Health Inpatient Social Work Psychosocial Assessment Date: 04/18/2020 Time: 10:29 AM Patient Name: Pam Benitez Date of : 1980 Sex: Female Admit Date/Time: 04/16/2020 12:07 AM Clinical information reviewed in [facility] CURRENT HOSPITALIZATION: Current Hospitalization Supervisor Stone Needs: Not needed Chief Complaint: Pulled over fro [employer]/Suicidal MARITAL STATUS: Marital Status Marital Status : Single SEXUAL ORIENTATION: heterosexual FAMILY INFORMATION: [facility]. Patient was and is . Patient has 19 year old son from the marriage and 22 year old daughter from another relationship. Patient's mother is cale, LIVING ARRANGEMENTS: Living Arrangements Current Living Arrangements: with fiance EDUCATION: Education Highest Level of Education : Some college EMPLOYMENT: Employment Current Employment: Unemployed Source Of Income: Supplemental security Income SERVICE: Service Service: No LEGAL HISTORY: Legal History Legal History: Other (Comment) SAMARITAN/SPIRITUAL BELIEFS: Latter-Day ETHNIC/RACE: Ethnic/Race Ethnic/Race: FAMILY HISTORY: Patient denies ans family history of mental illness PATIENT HISTORY: Patient has had multiple past hospitalizations and is receiving [facility] [place]. ABUSE: Denies CURRENT STRESSORS: Not known STRENGTHS AND LIMITATIONS: Strengths and Limitations Patient Strengths: Family/friends, Housing, Mental health services SUPPORT SYSTEMS: Support Systems Name and Contact of Collateral Provider: Messages left for guardian mom: Harriett Benitez @ [phone] and Dad: Adi Benitez @ [phone]. Pt reports parents turn off their phones at night. PATIENT GOALS FOR TREATMENT: Patient stated goals for treatment are stabilize mood, reduce psychoses. CLINICAL SUMMARY: Patient was pulled over for FRANCO and while trying to call to find a ride home she voiced that she suicidal so police brought her to the hospital. Patient has a guardian and is receiving mental health services [facility] [place]. See the Behavioral Medicine Consult for additional clinical information. Electronically signed by: Sanju Varela MA.Ed., [facility]ITALDav[facility], HYDROELECTRIC PRODUCTION TECHNICIAN/UR * Vandana Oliveira CTRS - 04/18/2020 9:25 AM EDT Pt unavailable at time of group do to completing ADL's * Tran Myers RN - 04/18/2020 8:58 AM EDT 0858 Pt resting in bed, awake and alert. Casually dressed. Affect flat, mood depressed and anxious.Rates anxiety an 8/10 , stating it's high . Rates depression a 3/10 Denies SI/HI/AH/VH or any feelings of self harm. Compliant taking scheduled medications. Pt requesting PRN Hydroxyzine when due. Pt advises she didn't sleep well last night. Denies needs at this time. 0945 Pt approaches nurses' station Inquires when she can have PRN Hydroxyzine, stating I don't want to talk to anyone today. I have a lot on my mind . Informed pt when Hydroxyzine would be available. Pt agreeable, returns to her room to rest in bed. 1028 PRN Hydroxyzine po given for anxiety pt rates a 9/10 . Pt informs this television script writer that she is dealing from a lot of stress regarding being evicted and not having anywhere to go yet. States My fiance might have found a place. I just hate being here. I feel bad I'm not there to help pack. Pt wenton to discuss her guardian/mother. Pt frustrated that her mother will not allow her to stay with her. Pt states my daughter lives there, but my mom won't let me even go to her house to see her. I don't feel safe having my mom as my guardian. She had my medications increased. I don't even want to take them, I'd rather hear voices and deal with being schizoaffective. Pt expresses anxiety from discussing her stressors, politely requests to go rest in bed. 1215 Dr. Caraballo making rounds, meeting with pt 1328 Pt resting in bed with eyes closed, respirations even and unlabored. * Jane Johnson RN - 04/17/2020 11:39 PM EDT 2330 Resting in bed. 0000 Patient currently resting in bed at this time. Special Precautions continue--see precaution monitoring for observations and documentation. 0200 Patient in bed, respirations easy. 0400 Patient resting in bed with eyes closed and even respirations. 0415 Patient medicated with Atarax 50 mg po for anxiety, per Guerda York RN 0500 Patient awake sitting up in bed reading magazine, states I had a bad dream when I asked for the Atarax, it has helped. I'm just reading now. 0600 Slept approximately 8 hours, from 2114 to present without concerns. Patient remains in bed resting. * Penelope Mendieta RN - 04/17/2020 5:13 PM EDT 1555 Pt is dressed in hospital attire. Pt laying in bed when this television script writer entered room, but pt immediately sat up in bed and smiled and greeted this television script writer. Pt rates depression a 0 today. Pt rates anxiety a 0 now, but pt said, it (anxiety) has been up and down today though. My mood is really goodtoday. Pt reports that pt showered this AM and is not just waiting for clothing to be checked in. Pt denies suicidal or homicidal ideation and self harm thoughts. Pt denies hallucinations. Pt deniesany other current needs/complaints. 1635 Pt eating in dining area with peers. 1724 On phone in lounge area. 1809 Pt in room resting in bed. 1952 Pt remains in room. Pt resting in bed with sound machine on, resps even and non labored. 2102 Pt med compliant this shift. Noticed tremor in jaw earlier. Pt relates the tremor is the reason pt takes Cogentin. Pt denies any other current needs/complaints. Pt has sound machine on at bedside. 2145 Pt resting quietly, resps even and non labored. 2251 Pt continues to rest quietly, resps even and non labored. * Yoandy Caraballo MD - 04/17/2020 3:18 PM EDT Psychiatry Progress Note Patient Name: Pam Benitez Admit Date: MR #: [id number] : 1980 Perpetual Assessment Pam Benitez is a 39 y.o. female was seen individually, case discussed with nursing staff, medical records were reviewed. Patient is dressed in hospital gown, unkempt, laying in the bed, seclusive, isolated, withdrawn on approach. Patient admitted of using methamphetamine for past 2 years and claimed that lately her anger has been building up and has low self team. Patient claimed that she is struggling for identity details of which she did not elaborate. 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 Diagnosis & Plan/Recommendations Supportive therapy Pharmacological treatment Group therapy, activities therapy PRINCIPAL DIAGNOSIS: Schizoaffective disorder No new Assessment & Plan notes have been filed under this hospital service since the last note was generated. Service: Behavioral Medicine Comorbid issues impacting my care plan include non-adherence and substance use. Following for Interval History: Review of Systems: Constitutional:No fever, no weight loss Eyes:No diplopia ENT:No sinus drainage CV:No chest pain. No ankle swelling Resp:No dyspnea. No wheezing GI:No abdominal pain.No abdominal distention :No dysuria Neuro:No headache Integumentary:No skin rash MuscSkel:No arthralgias Endo:No polyuria Heme/lymphatic:No apparent lymphadenopathy Allergic/Immunologic:No hives Physical Examination: Vital Signs: BP 112/79 Pulse 66 Temp 98.2 F (36.8 C) (Infrared) Resp 16 Ht 5' 7 Wt 109.3 kg (241 lb) SpO2 99% BMI 37.75 kg/m Mental Status Evaluation: General Appearance & Behavior: older than stated age, obese and minimally engaged Grooming & Hygiene: hospital gown and unkempt Psychomotor Activity: psychomotor retardation Gait & Station stable gait Speech: soft spoken Flow of Thought: disorganized Thought Associations: Intact Content of Thought: thoughts of self harm Mood: stressed out Affect: anxious, worried, irritable, labile, sad and depressed Insight: poor Judgment: poor Orientation: alert and oriented to person, place, time, and circumstances Memory: intact recent and remote Attention: adequate Concentration: intact Language: intact Fund of Knowledge: estimated average intelligence Laboratory and Additional Data Reviewed: Laboratory 04/17/20 3:23 PM Microbiology 04/17/20 3:23 PM Pathology 04/17/20 3:23 PM Medications 04/17/20 3:23 PM Transcriptions 04/17/20 3:23 PM Treatment options and alternatives reviewed with patient. Risks, benefits, side effects of all psychiatric medications discussed with patient and informed consent obtained. All questions were answered. Yoandy Caraballo MD 04/17/2020 3:18 PM * Vandana Oliveira, ZUMBA INSTRUCTOR - 04/17/2020 2:15 PM EDT PT resting in bed when approached for group, did not attend. * Stephanie Myers - 04/17/2020 1:09 PM EDT Spiritual Care Progress Note Completed by: Johanny Paris Person(s) Present During this Visit: Patient Time Spent in Direct Patient Care: 60 Narrative: Pt attended spirituality group. Topic was on trust. Patients Response to Pastoral Care: Appeared to be well-engaged, Expressed Gratitude for Visit Planning for Future Visits: PRN 04/17/20 1000 Visit Background Visit With Patient Visit By Student Ramp Lead;Staff Ramp Lead Visit Progression Introduction Visit Requested By Ramp Lead Initiated Visit Source Ramp Lead Initiated Visit Type Behavioral Health Visit Circumstances and Events Group Visit Length (minutes) 60 Patient's Response to Pastoral Care Appeared to be well-engaged;Expressed Gratitude for Visit Visit Planning PRN Spiritual Assessment Not assessed during visit Restorationist Assessment Not assessed during this visit Family assessment provided? Not assessed during this visit Ramp Lead Signature: Johanny Paris * Vandana Oliveira CTRS - 04/17/2020 9:15 AM EDT Pt resting soundly in room, with sound machine on, when approached for group. PT did not wake thus did not attend. * Tran Myers RN - 04/17/2020 8:15 AM EDT 0815 Pt sitting in dining room area. Dressed in blue gown. Affect flat, mood depressed. Pt advises she slept good when asked. Denies anxiety and depression. Denies SI/HI/AH/VH or any feelings of self harm. Pt states I feel pretty good this morning . Behavior calm, cooperative. Compliant taking sc heduled medications. Requesting and provided with clean towels and hygiene items to take a shower. Denies further needs. 0903 Pt approaches nurses' station, requesting prn medication for anxiety. Pt rates current anxietyan 01/31 . Pt states we are trying to find a place to live in [place] and thinking about it is making me anxious . PRN Hydroxyzine po given as ordered. 1030 Pt attending spirituality group 1116 Pt rates current headache an 8/10 . Pt advises she has a headache from crying during spirituality group due to a song they played. Pt states the song made me think of my family, but it was also very therapeutic . PRN Ibuprofen given as ordered. 1200 Dr. Caraballo making rounds, meeting with pt * Jane Johnson RN - 04/16/2020 11:52 PM EDT 2330 Resting in bed. 0000 Patient currently resting in bed at this time. Special Precautions continue--see precaution monitoring for observations and documentation. 0200 Patient in bed, respirations easy. 0300 Awake requested and provided peanut butter and jelly sandwich, with milk 0339 per request Atarax 50 mg po 0400 Patient resting in bed with eyes closed and even respirations. 0600 Slept approximately 7 1/2 hours, from 5 to present without concerns. Patient remains in bedresting. * Rosalinda Mendieta RN -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
[2023-08-16 23:51] LABS: Absolute Lymphocyte Count 2.58 X10^3/uL (0.83-4.51); Absolute Neutrophil Count 11.7 X10^3/uL (2.0-7.7); Basophil# 0.08 X10^3/uL; Basophil% 0.5 % (0-1); Eosinophil# 0.28 X10^3/uL; Eosinophils% 1.8 % (0-5); Hematocrit 37.9 % (37-47); Lymphocyte # 2.58 X10^3/ul (0.83-4.51); Lymphocyte % 16.8 % (19-41); Mean Corp Hgb Conc 31.7 g/dL (32-36); Mean Corpuscular Hgb 24.9 pg (27.0-32.0); Mean Corpuscular Volume 78.6 fL (81-99); Mean Platelet Vol. 8.8 fl (6.2-12.0); Monocyte# 0.64 X10^3/uL; Monocyte% 4.2 % (0-10); NRBC Flagged by Analyzer 0 % (0-5); Neutrophil # 11.72 X10^3/uL (2.7-7.7); Neutrophil % 76.1 % (47-70); Platelet Count 375 K/mm3 (150-450); RBC Distribution Width CV 14.4 % (11.6-14.6); RBC Distribution Width SD 41.1 fl (35.1-43.9); Red Blood Count 4.82 M/mm3 (4.2-5.4); White Blood Count 15.4 K/mm3 (4.4-11.0)
[2023-08-16 23:58] LABS: Internal QC Validated? YES +Cl - CLEAR BKGD
[2023-08-16 23:59] LABS: Pregnancy, Urine Negative Negative
[2023-08-17 00:04] LABS: Alcohol, Blood (Medical)-Serum < 3.0 mg/dL
[2023-08-17 00:06] LABS: Anion Gap 5 (5-15); BUN 8 mg/dL (7-18); Calcium,Total 8.9 mg/dL (8.5-10.1); Chloride 107 mmol/L (98-107); Creatinine, Serum 0.88 mg/dL (0.55-1.02); EST Glomerular Filtration Rate 73 mL/min (>60); Est Glom Filt Rate - Afr Amer 89 mL/min (>60); Estimated Creatinine Clearance 108.15 ml/min; Glucose 182 mg/dL (74-106); Potassium 3.7 mmol/L (3.5-5.1); Sodium Level 136 mmol/L (136-145)
[2023-08-17 00:13] LABS: Amphetamine Urine VISTA POSITIVE (<1000 ng/mL); Barbiturate Urine VISTA NEGATIVE (< 200 ng/mL); Benzodiazepine Urine VISTA NEGATIVE (< 200 ng/mL); Cocaine Urine VISTA NEGATIVE (< 300 ng/mL); Ecstacy Urine VISTA NEGATIVE (< 500 ng/mL); Methadone Urine VISTA NEGATIVE (< 300 ng/mL); PCP Urine VISTA NEGATIVE (< 25 ng/mL); THC Urine VISTA NEGATIVE (< 50 ng/mL); Vista UDS pH Range 6
--- NOTE | 2023-08-17 00:57 | ED.RN ---
Patient requested to take her benzotropine for her tremors and her buspirone for anxiety. Dr Sanchez gave verbal permission for the patient to take both of those. This RN verified the pill from the pill bottle and visualized the patient taking the pills.
== END 2023-08-17 02:20 | disposition home or self-care (01) ==
PROVIDERS: Emergency Provider Emergency Medicine; PCP Family Medicine; Visit Provider Emergency Medicine
DX: R45.851 Suicidal ideations (principal); F19.19 Other psychoactive substance abuse with unspecified psychoactive substance-induced disorder; F32.A Depression, unspecified; F17.210 Nicotine dependence, cigarettes, uncomplicated; Z63.4 Disappearance and death of family member; F43.21 Adjustment disorder with depressed mood; Z79.899 Other long term (current) drug therapy
CPT/HCPCS: 80048; 80307; 80320; 81025; 85025; 87811; 93005; 99283; G0480

== ENCOUNTER → 2024-02-28 | Outpatient (CLI) | payer MEDICAID, SELFPAY ==
[2024-02-28 10:56] LABS: ALB/GLOB Ratio 0.7 RATIO (0.9-2.4); AST(SGOT) 22 U/L (15-37); Alanine Aminotransfer ALT/SGPT 34 U/L (13-56); Albumin, Serum 3.2 g/dL (3.2-5.0); Alkaline Phosphatase 99 U/L (45-117); Anion Gap 5 (5-15); BUN 9 mg/dL (7-18); BUN/Creat Ratio 11.1 RATIO (10-20); Calcium,Total 9.2 mg/dL (8.5-10.1); Chloride 107 mmol/L (98-107); Cholesterol 118 mg/dL (200); Creatinine, Serum 0.81 mg/dL (0.55-1.02); EST Glomerular Filtration Rate 81 mL/min (>60); Est Glom Filt Rate - Afr Amer 98 mL/min (>60); Globulin 4.5 g/dL (2.2-4.2); Glucose 134 mg/dL (74-106); High Density Lipoprotein 29 mg/dL; Protein, Total 7.7 g/dL (6.4-8.2); Sodium Level 137 mmol/L (136-145); Triglycerides 222 mg/dL; Very Low Density Lipoprotein 44 mg/dL (5-40)
== END | disposition home or self-care (01) ==
PROVIDERS: PCP Family Medicine; Referring Provider Psychiatry & Neurology Psychiatry; Visit Provider Psychiatry & Neurology Psychiatry
DX: R73.03 Prediabetes (principal); Z79.899 Other long term (current) drug therapy
CPT/HCPCS: 36415; 80053; 80061; 84443